=== PATIENT | female | born 1935 | race Caucasian/White ===

== ENCOUNTER 2021-03-19 14:10 | Outpatient (CLI) | payer MEDICARE, SELFPAY ==
--- NOTE | ~2021-03-19 | XR_ITS ---
EXAMINATION: XR clavicle RT DATE: 03/19/2021 14:43 INDICATION: Pain and swelling at the right sternoclavicular joint. TECHNIQUE: AP and 10 degree cephalad angled AP views of the right clavicle were obtained. COMPARISON: none FINDINGS: Normal alignment. No fracture. 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 Right glenohumeral and left sternoclavicular joints are unremarkable. Calcified nodule at the left upper lung zone consistent with old granulomatous disease.. IMPRESSION: 1. 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 Reviewed, dictated and finalized at location A.
== END 2021-03-19 14:11 | disposition home or self-care (01) ==
PROVIDERS: PCP Family Medicine; Visit Provider Plastic Surgery
DX: M19.011 Primary osteoarthritis, right shoulder (principal)
CPT/HCPCS: 73000

== ENCOUNTER 2021-06-05 14:00 | Emergency (ER) | payer MEDICARE, SELFPAY ==
--- NOTE | 2021-06-05 14:01 | ED.BACK ---
HPI - Back Pain/Injury General Chief Complaint: Back Pain/Injury Stated Complaint: Back Pain Time Seen by Provider: 06/05/21 14:01 Source: patient, family and RN notes reviewed History of Present Illness HPI Narrative: Patient is an 85-year-old female who presents to the urgent care with complaints of left-sided sciatica. Patient states that it radiates all the way down to the left foot. Patient states that she had this years ago and did keep muscle relaxers on hand to take as needed. However patient states she does not have any left. Patient states it started acting up last night after she had her legs out crossed for several hours. Patient states that she is used support hose which has helped slightly and taken Tylenol. Patient denies of any loss of bowel or bladder. Denies of any recent fall or trauma. No other acute complaints. No acute distress noted. Patient and spouse aware of the plan of care. Some parts of this dictation were generated by voice recognition software and may contain typographical and/or grammatical inaccuracies. Related Data Home Medications Medication Instructions Recorded Confirmed amlodipine 10 mg PO DAILY 06/05/21 06/05/21 fluticasone furoate-vilanterol 1 inh INHALATION DAILY 06/05/21 06/05/21 [Breo Ellipta] levothyroxine 75 mcg PO DAILY 06/05/21 06/05/21 Allergies Allergy/AdvReac Type Severity Reaction Status Date / Time codeine Allergy Unknown HIVES Verified 06/05/21 14:17 tetracycline Allergy Unknown HIVES Verified 06/05/21 14:17 Review of Systems Review of Systems: CONSTITUTIONAL: Denies fever, chills, or sweats. EYES: Denies visual changes, redness, or discharge. ENT: Denies rhinorrhea, congestion, sore throat, or otalgia. CARDIOVASCULAR: Denies chest pain, palpitations, or edema. RESPIRATORY: Denies cough or dyspnea. GASTROINTESTINAL: Denies abdominal pain, nausea, vomiting, or diarrhea. GENITOURINARY: Denies dysuria or hematuria. SKIN: Denies rash or itching. MUSCULOSKELETAL: Reports of left-sided low back pain radiating to the left buttock/left upper leg NEUROLOGIC: Denies headache, numbness, or weakness. All other systems reviewed are negative, except as documented in HPI. PMFSH Comments At the time of my signature, I reviewed and agree with the nursing past medical, surgical, social, and family history. There is no relevant family history pertinent to the patient complaint. Exam Narrative: GENERAL: This is a well-nourished, well-developed patient, in no apparent distress. HEAD: normocephalic, atraumatic. EYES: PERRL. Sclera clear/white. Vision is grossly intact. EARS: External ears normal NOSE: External nose normal with no obvious nasal discharge, nares without redness, no rhinorrhea. THROAT: Mucous membranes moist NECK: Neck supple CARDIOVASCULAR: Regular rate and rhythm RESPIRATORY: Clear to auscultation. Breath sounds equal bilaterally. No wheezes, rales, or rhonchi. SKIN: warm, intact with no suspicious lesions or rash, good texture and turgor. NEURO: awake, alert, and oriented to person, place and time. There were no obvious focal neurologic abnormalities. EXTREMITIES: No clubbing, cyanosis, or edema. BACK: Mild piriformis tenderness on the left with positive left SLE Course Vital Signs Vital signs: Vital Signs Temperature 98.6 F 06/05/21 14:08 Pulse Rate 78 06/05/21 14:08 Respiratory Rate 16 06/05/21 14:08 Blood Pressure 153/84 H 06/05/21 14:08 Pulse Oximetry 97 06/05/21 14:08 Temperature 98.6 F 06/05/21 14:08 Pulse Rate 78 06/05/21 14:08 Respiratory Rate 16 06/05/21 14:08 Blood Pressure 153/84 H 06/05/21 14:08 Pulse Oximetry 97 06/05/21 14:08 Reviewed-patient is informed that they may have pre-hypertension or hypertension based on a blood pressure reading in the department. I recommend the patient call the primary care provider listed on their discharge instructions or a physician of their choice this week to arrange follo
[2021-06-05 14:08] VITALS: BP 153/84; PULSE 78; RESP 16; TEMP 37; O2SAT 97
== END 2021-06-05 14:34 | disposition home or self-care (01) ==
PROVIDERS: Emergency Provider Nurse Practitioner Family
DX: M54.32 Sciatica, left side (principal)
CPT/HCPCS: 99213; G0463

== ENCOUNTER 2023-03-07 10:48 | Outpatient (CLI) | payer MEDICARE, SELFPAY ==
--- NOTE | ~2023-03-07 | XR_ITS ---
Left wrist Technique: PA, oblique, lateral, and ulnar deviation views were obtained. Clinical History: Osteoarthritis Findings: No acute fracture or dislocation is seen. There is mild to moderate degenerative change at the first CMC joint and STT articulations.. Soft tissues are unremarkable. Impression: Mild/moderate degenerative change at the first CMC joint and STT articulations. Reviewed, dictated and finalized at location . Impression: Mild/moderate degenerative change at the first CMC joint and STT articulations.
== END 2023-03-07 10:49 | disposition home or self-care (01) ==
PROVIDERS: Visit Provider Plastic Surgery
DX: M19.032 Primary osteoarthritis, left wrist (principal)
CPT/HCPCS: 73110

== ENCOUNTER 2023-06-18 01:36 | Day surgery (SDC) | payer MEDICARE, SELFPAY ==
--- NOTE | 2023-06-13 13:30 | PC.NURSE ---
Report to the Outpatient Waiting Room, entrance under the green pavilion located off [facility], at time _1100 on date ___06/18/23____. Planned Procedure Time: __1300 . Time changes happen often and if your time is changed the preop area will call you the afternoon before. - You and your visitor will be asked to self-screen and do not enter if you have any COVID symptoms. - A mask is optional within the hospital at this time. NOTHING TO EAT OR DRINK 8 HOURS PRIOR TO SURGERY PER DR BEE Take the following medications with a SIP of water the morning of surgery: ___AMLODIPINE,BREO INHALER_,LEVOTHYROXINE DO NOT STOP ANY OF YOUR OTHER PRESCRIPTION MEDICATIONS PRIOR TO SURGERY ?EXCEPT THE FOLLOWING Medications to discontinue per physician PLAVIX PER DR BEE __ALL VITAMINS AND SUPPLEMENTS 3 DAYS PRE OP.LAST DOSE 06/14/23 Please no make-up, nail jordanian, hairspray, perfume, deodorant, or body powder the day of surgery. No jewelry (including any body piercings) or valuables the day of surgery, leave them at home. Please take a shower or bath the night before, or the morning of, surgery with an antibacterial soap. Wear comfortable, loose fitting clothing. Children are encouraged to wear pajamas. - Jewelry must be removed prior to entering the operating room. Rings and piercings that are not removed may be cut off. - The hospital will not accept responsibility for valuables. - Please leave all valuables, including medications, at home the day of surgery. If you are going home after surgery, a licensed driver license reviewing officer must drive you home. - NO public transportation without another adult if you receive anesthesia. - We recommend that an adult stay with you for 24 hours following discharge. - We also recommend that you do not drive, make important decision, drink alcoholic beverages, or take any drugs that were not prescribed by your health care provider for at least 24 hours after your discharge time. For Pediatric surgeries, we recommend two adults accompany the child home. Follow any additional instructions given to you from your surgeon. If you or anyone in your household have experienced Covid symptoms in the past week, please notify your surgeon or the nurse liaison at the phone number below for possible testing. Telephone instructions given to __PATIENT and asked if any additional questions and then verbalized understanding. Patient advised to call surgeon office or pre surgery nurse liaison [phone] if any additional questions.
--- NOTE | 2023-06-18 07:56 | PM.HPGS ---
History of Present Illness History of Present Illness Chief complaint: ganglion cyst left dorsal wrist Narrative: Patient seen and examined in pre-operative holding area. No interval change in medical history or symptoms other than patient also notes persistent bothersome painful lesion on left volar forearm and asks about excision. Patient recalls previous discussion of benefits and alternatives to procedure. Continues to desire to proceed with left wrist ganglion cyst excision and ecu tenosynovectomy . Reviewed procedure, post-op expectations and risks including but not limited to bleeding, infection, injury to tendon/nerve/vessel, decreased hand function, stiffness, RSD, no change or worsening of symptoms, recurrence. I discussed the possible use of assistants and their participation in the case. Patient stated understanding and signed the consent form wishing to proceed. discussed excision of lesion at same time as other surgery, post-op expectations and risks including but not limited to recurrence. pt signed consent wishing to proceed Review of Systems Review of Systems: All systems reviewed & are unremarkable except as noted in HPI and below PMFSH Social History Social History Smoking status: Never smoker Lack of Transportation: No Lack of Food: Never True Current Housing: I Have Housing Concerned About Future Housing: No Difficulty Paying Gas/Electric Bills: No Difficulty Paying for Meds: No Currently Unemployed: No Education: High School Diploma/GED Difficulty w/ Childcare or Family Care: No Living arrangements: with family Spiritual care concerns: No Meds Home Medications and Allergies Home Medications Medication Instructions Recorded Confirmed Type amlodipine 10 mg tablet 10 mg PO DAILY 06/05/21 06/18/23 History fluticasone furoate 100 1 inh inhalation DAILY 06/05/21 06/13/23 History mcg-vilanterol 25 mcg/dose inhalation powder (Breo Ellipta) levothyroxine 75 mcg capsule 75 mcg PO DAILY 06/05/21 06/18/23 History clopidogrel 75 mg tablet 75 mg PO DAILY 06/13/23 06/18/23 History cyanocobalamin (vitamin B-12) 1,000 mcg PO DAILY 06/13/23 06/13/23 History 1,000 mcg tablet lactobacillus combination no.8 3 3 cell PO DAILY 06/13/23 06/13/23 History billion cell capsule potassium 99 mg tablet 99 mg PO DAILY 06/13/23 06/13/23 History vitamin A 2,400 mcg capsule 2,400 mcg PO DAILY 06/13/23 06/13/23 History tramadol 50 mg tablet 50 mg PO Q6H PRN pain #8 tabs 06/18/23 Rx Allergies Allergy/AdvReac Type Severity Reaction Status Date / Time codeine Allergy Unknown HIVES Verified 06/18/23 12:26 tetracycline Allergy Unknown HIVES Verified 06/18/23 12:26 Exam Narrative: unchanged Assessment and Plan Assessment and plan (1) Ganglion cyst: Code(s): M67.40 - Ganglion, unspecified site Status: Acute Assessment and Plan: see above
--- NOTE | 2023-06-18 07:57 | P.OP_ITS ---
Procedure Note - Detailed Date of Procedure 06/18/23 Pre-op Diagnosis ganglion cyst left dorsal wrist and left forearm skin lesion Post-op Diagnosis Same Procedure Performed excision left dorsal wrist ganglion cyst and excision left forearm skin lesion Surgeon Estee Mcdermott MD Anesthesia MAC Description of Procedure INFORMED CONSENT: The patient was seen and examined and marked in the pre-op area.? The patient signed the consent form. PROCEDURE IN DETAIL:The patient taken back to OR on the stretcher in supine position. Time out performed with anesthesia, surgeon and staff agreeing on patient's name site and surgery to be performed SCDs were placed on the lower extremities and inflated. A tourniquet was placed on {left} upper extremity and antibiotics given IV After anesthesia administered sedation I injected {15}cc 1%lido with epi and 0.5% marcaine plain at the operative sites The?{left upper extremity}?was prepped and draped in sterile fashion the??{left upper extremity} was? exsanguinated with Esmarch bandage and tourniquet inflated to 250mmHg I proceeded with making a longitudinal incisoin over left ecu and ganglion cyst through skin and dermis with a 15 blade. Littler scissors were used to spread down to ecu sheath and identified ganglion cyst distally around ulnar styloid. I proceeded with circumferential dissection around the ganglion cyst to joint capsule and then cauterized with bipolar and excised sharply. I irrigated with normal saline and repaired the capsular defect with 4-0 vicryl. The ECU was examined after releasing the ecu sheath and noting some fraying of the ecu as pt was also demonstrating pain along ecu pre-operatively. After releasing ecu sheath I irrigated with normal saline and closure with 3-0 viryl and 4-0 nylon. Next I took my attention to the left volar forearm lesion. I proceeded with making an elliptical incision around lesion with 3mm margins and excess skin on ends to remove dog ears wide undermine skin edges to minimize tension and allow skin edge advancement hemostasis irrigation closure with 4-0 vicryl dermis and 4-0 nylon skin length of closure was 1.7cm A dressing ofxeroform, 4x4, vernon, and a volar splint was applied for patient safety, security, and comfort and secured with an stepan bandage after the tourniquet was let down noting the hand was warm and well perfused. The patient was then awaken from anesthesia and transferred to the recovery room in stable condition.? Complications - none EBL- 0cc Disposition - home in stable conditions [facility] [place] Billing Surgery - Charge Forward: Surgery Billing ([id number], [id number], [id number] and [id number])
--- NOTE | 2023-06-18 12:17 | WPDANESEPPF ---
Anes - Initial Pre Proc Eval Procedure: Operation Date: 06/18/23 13:00 Proposed Procedures p Excision Ganglion Cyst Left Dorsal Wrist, Extensor Carpi Ulnaris Synovectomy - Estee Mcdermott MD Date/Time: 06/18/23 12:17 Surgeon: Estee Mcdermott MD Pre Op Diagnosis: ganglion cyst left dorsal wrist Patient Data Age: 87 Gender: F Height: Weight: Allergies Allergy/AdvReac Type Severity Reaction Status Date / Time codeine Allergy Unknown HIVES Verified 06/13/23 13:15 tetracycline Allergy Unknown HIVES Verified 06/13/23 13:15 Home Medications Medication Instructions Recorded Confirmed Type amlodipine 10 mg tablet 10 mg PO DAILY 06/05/21 06/13/23 History fluticasone furoate 100 1 inh inhalation DAILY 06/05/21 06/13/23 History mcg-vilanterol 25 mcg/dose inhalation powder (Breo Ellipta) levothyroxine 75 mcg capsule 75 mcg PO DAILY 06/05/21 06/13/23 History clopidogrel 75 mg tablet 75 mg PO DAILY 06/13/23 06/13/23 History cyanocobalamin (vitamin B-12) 1,000 mcg PO DAILY 06/13/23 06/13/23 History 1,000 mcg tablet lactobacillus combination no.8 3 3 cell PO DAILY 06/13/23 06/13/23 History billion cell capsule potassium 99 mg tablet 99 mg PO DAILY 06/13/23 06/13/23 History vitamin A 2,400 mcg capsule 2,400 mcg PO DAILY 06/13/23 06/13/23 History Patient hx anesthesia problems: other (diff breathing) Family hx anesthesia problems: none Results Review: All pre-operative results and documents have been reviewed as part of the pre-operative evaluation. [facility] Social History Social History Smoking status: Never smoker Lack of Transportation: No Lack of Food: Never True Current Housing: I Have Housing Concerned About Future Housing: No Difficulty Paying Gas/Electric Bills: No Difficulty Paying for Meds: No Currently Unemployed: No Education: High School Diploma/GED Difficulty w/ Childcare or Family Care: No Living arrangements: with family Spiritual care concerns: No Anes - Eval Final PreProcedure Day of Procedure 06/18/23 12:17 Patient weight: overweight Heart: regular rate and rhythm Lungs: decreased breath sounds Airway: Mallampati scale class II Neurological: alert and oriented Last oral intake: >/= 8 hours ASA classification: III Emergent: no Anesthetic plan: proceed Anesthesia type and monitoring: general GIVS and standard monitoring Results Review: All pre-operative results and documents have been reviewed as part of the pre-operative evaluation. Informed Consent: The patient's anesthetic plan and its attendant risks and benefits were discussed with the patient/family/POA. Questions were solicited and answers provided to the satisfaction of the patient/family/POA.
[2023-06-18 12:22] VITALS: BP 161/88; PULSE 71; RESP 14; TEMP 36.4; O2SAT 99
[2023-06-18] MEDS: ceFAZolin 2 GM/D5W 50 ML 2 GM/50 ML BAG IVPB (12:58)
[2023-06-18] MEDS: LIDO 1%/EPINEPHRINE 1:100,000 20 ML VIAL 10 ML INFILTRATE (13:25)
[2023-06-18] MEDS: BUPivacaine HCL 0.5% PF 30 ML VIAL INFILTRATE (13:26)
[2023-06-18 13:33] VITALS: BP 162/77; PULSE 72; RESP 14; O2SAT 99
[2023-06-18 14:00] VITALS: BP 143/58; PULSE 65; RESP 16
[2023-06-18 14:30] VITALS: BP 166/81; PULSE 70; RESP 16
== END 2023-06-18 15:00 | disposition home or self-care (01) ==
PROVIDERS: Visit Provider Plastic Surgery
PROC: (CPT 25111; principal; 2023-06-18 13:00)
DX: M67.432 Ganglion, left wrist (principal); L82.1 Other seborrheic keratosis; L57.8 Other skin changes due to chronic exposure to nonionizing radiation; Z79.02 Long term (current) use of antithrombotics/antiplatelets; Z79.51 Long term (current) use of inhaled steroids
CPT/HCPCS: 25111; 11402; 12031; 88305; A9270; J0690; J2704; J3010

== ENCOUNTER 2024-06-01 12:14 | Outpatient (CLI) | payer MEDICARE, SELFPAY ==
--- NOTE | ~2024-06-01 | MR_ITS ---
EXAMINATION: MR wrist LT wo/w con DATE: 06/01/2024 13:38 INDICATION: Left wrist pain and swelling and ganglion. TECHNIQUE: Magnetic resonance imaging (MRI) of the wrist was performed without and with 13 mL MultiHa nce intravenous contrast. COMPARISON: Left wrist radiographs 03/07/2023 FINDINGS: Intrinsic ligaments: There is a partial tear of the proximal (membranous) component of scapholunate ligament. There is a f ull-thickness tear of the proximal (membranous) component of lunotriquetral ligament. Triangular fibrocartilage complex (TFCC): There is a full-thickness tear of triangular fibrocartilage. Extensor wrist: There is multiloculated tenosynovitis involving extensor carpi ulnaris. There is an intraosseous gang lion in the adjacent ulnar styloid. Flexor wrist: The flexor tendons are normal. Median nerve is normal. Guyon's canal: The ulnar nerve is normal. Bones/other: There is full-thickness cartilage loss of proximal lunate at its ulnar aspect with subchondral cysts, consistent with ulnolunate impaction syndrome. There is full-thickness cartilage loss of radial styl oid at radioscaphoid joint. There is severe osteoarthritis of triscaphe joint and first carpometacarp al joint. There is mild osteoarthritis of scapholunate joint. IMPRESSION: 1. Multiloculated tenosynovitis involving extensor carpi ulnaris with an intraosseous ganglion in the adjacent ulnar styloid. 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 Reviewed, dictated and finalized at location A. L EXPEDITER IMPRESSION: 1. Multiloculated tenosynovitis involving extensor carpi ulnaris with an intrao sseous ganglion in the adjacent ulnar styloid. 2. 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
== END 2024-06-01 12:15 | disposition home or self-care (01) ==
PROVIDERS: Visit Provider Plastic Surgery
DX: S63.512A Sprain of carpal joint of left wrist, initial encounter (principal); X58.XXXA Exposure to other specified factors, initial encounter; M19.032 Primary osteoarthritis, left wrist
CPT/HCPCS: 73223; A9577

== ENCOUNTER 2024-09-01 00:57 | Day surgery (SDC) | payer MEDICARE, SELFPAY ==
[2024-08-24 13:02] VITALS: BMI 22.7
--- NOTE | 2024-08-24 13:52 | PC.NURSE ---
Report to the Outpatient Waiting Room, entrance under the green pavilion located off [facility], at time ___10:45AM____ on date ___09/01/24____. Planned Procedure Time: __12:45PM .? Time changes happen often and if your time is changed the preop area will call you the afternoon before. - You and your visitor will be asked to self-screen and do not enter if you have any COVID symptoms. Please call surgeon if you need to reschedule. - A mask is optional within the hospital at this time. Nothing to eat or drink 8 hours pre-op per Dr Luke/ may have clear liquids (water, carbonated beverages, clear teas, apple juice) until 2:45am prior to surgery (with a maximum of 20 ounces. - No food from midnight until time of surgery and no smoking, or chewing tobacco (or any form of nicotine). No chewing gum, candy or mints. Take only the following medications with a SIP of water on the morning of surgery: ____AMLODIPINE, LEVOTHYROXINE & WIXELA INHALER DO NOT STOP ANY OF YOUR OTHER PRESCRIPTION MEDICATIONS PRIOR TO SURGERY EXCEPT THE FOLLOWING Hold all vitamins and supplements for 3 days per anesthesiologist.-LAST DOSE 08/28/24 Medications to discontinue per physician __HOLD PLAVIX PER DR BEE- LEFT MESSAGE AT OFFICE TO FOLLOW UP WITH PATIENT ABOUT PLAVIX HOLD(08/24/24)__ Please no make-up, nail yi, hairspray, perfume, deodorant, or body powder the day of surgery.? No jewelry (including any body piercings) or valuables the day of surgery, leave them at home.? Please take a shower or bath the night before, or the morning of, surgery with an antibacterial soap.? Wear comfortable, loose fitting clothing.? - Jewelry must be removed prior to entering the operating room.? Rings and piercings that are not removed may be cut off. - The hospital will not accept responsibility for valuables.? - Please leave all valuables, including medications, at home the day of surgery. If you are going home after surgery, a licensed driver's license examiner must drive you home.? - NO public transportation without another adult if you receive anesthesia. - We recommend that an adult stay with you for 24 hours following discharge. - We also recommend that you do not drive, make important decision, drink alcoholic beverages, or take any drugs that were not prescribed by your health care provider for at least 24 hours after your discharge time. Follow any additional instructions given to you from your surgeon. Telephone instructions given to ____PATIENT and asked if any additional questions and then verbalized understanding. Patient advised to call surgeon office or pre surgery nurse liaison [phone] if any additional questions.
[2024-09-01] VITALS (8 sets, daily range): BP systolic 145–176; BP diastolic 54–85; PULSE 64–78; RESP 12–20; TEMP 36.6; O2SAT 93–98; BMI 23.6
--- NOTE | ~2024-09-01 | XR_ITS ---
EXAMINATION: XR surgery orthopedic DATE: 09/01/2024 13:50 INDICATION: Left wrist arthroscopy TECHNIQUE: 4 fluoroscopic images of the left wrist were obtained during procedure performed by Dr. Ab marrufo. Radiologist was not present for the imaging or procedure. The amount of fluoroscopy time us ed during this procedure was 0.2 minutes. COMPARISON: Radiographs dated 03/07/23 and MRI dated 06/01/2024 FINDINGS: Images demonstrate soft tissue retractors project over the ulnar side of the wrist. The tip of a meta llic surgical instrument likely for curettage projects over the lytic lesion at the ulnar styloid pro cess. No fractures identified. 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 IMPRESSION: 1. Fluoroscopy utilized during orthopedic procedure at dressing and lytic lesion at the ulnar styloid process. See procedure note for further detail. Reviewed, dictated and finalized at location B. ER PRESS OPERATOR IMPRESSION: 1. Fluoroscopy utilized during orthopedic procedure at dressing and lytic lesio n at the ulnar styloid process. See procedure note for further detail.
--- OUTSIDE RECORDS SUMMARY | 2024-09-01 01:00 | XMS_ITS | Encounter Summary ---
Author Organization [facility] Address [address] [place] [address] Phone Care Team Providers Care Medical Unit Secretary Name Role Phone Diamond Langley MD Primary Care Provider + [phone] Felisha Gresham MD Primary Care Provider + [phone] Prasanna Chowdary MD Unavailable Wilson Teague Primary Care Provider + [phone] Davey Peralta APRN, SWATHI Unavailable + [phone] Reason for Visit * Reason Comments Medication Refill Encounter Details Date Type Department Care Team (Late st Contact Info) Description [facility] [address] [place] [address] Diamond Langley MD [address] [place] [address] Medication Refill Social History Tobacco Use Types Packs/Day Years Used Date Smoking Tobacco: Never Smokeless Tobacco: Never Alcohol Use Standard Drinks/Week Comments No 0 (1 standard drink = 0.6 oz pur e alcohol) PHQ-2 Answer Date Recorded PHQ-2 Score 0 03/20/2019 Sexually Active Control Partners Comments Yes Male Comments No Sex and Gender Information Value Date Recorded Sex Assigned at Not on file Legal Sex Female 10:22 AM CDT Gender Identity Not on file Sexual Orientation Not on file documented as of this encounter Miscellaneous Notes * Telephone Encounter - Gricel Diaz RN - 02/20/2021 10:37 AM CDT Medication failed the protocol, provider to review and approve the medication order if appropriate. Requested Prescriptions Pending Prescriptions Disp Refills levothyroxine (SYNTHROID) 75 MCG Tablet [Pharmacy Med Name: LEVOTHYROXINE 75 MCG TABLET] 90 Tablet 1 Sig: TAKE 1 TABLET BY MOUTH EVERY DAY Thyroid Hormones Protocol Failed - 02/20/2021 10:37 AM Failed - Normal TSH in past 12 months No results found for: TSH Passed - Visit with relevant provider in past 12 months or upcoming 90 days Recent Visits Date Type Provider Dept 01/09/21 Office Visit Diamond Langley MD [facility] 07/14/20 Telemedicine Diamond Langley MD [facility] 07/10/20 Office Visit Diamond Langley MD [facility] Showing recent visits within past 365 days and meeting all other requirements Future Appointments No visits were found meeting these conditions. Showing future appointments within next 90 days and meeting all other requirements documented in this encounter Plan of Treatment Upcoming Encounters Date Type Department Care Team (Late st Contact Info) Description 12/28/2024 1:00 PM CDT Office Visit [facility] [address] [place] [address] Davey Peralta, MANAGEMENT TECHNICIAN, VISUAL MANAGER [address] [place] [address] 02/01/2025 8:10 AM CDT Lab [facility] [address] [place] [address] [facility] 02/07/2025 8:30 AM CDT Office Visit [facility] [place] [address] [place] [address] Wilson Teague, PAC [address] [place] [address] documented as of this encounter Visit Diagnoses Diagnosis Hypothyroidism (acquired) Unspecified hypothyroidism documented in this encounter Additional Health Concerns Infection Onset Date Last Indicated Resolved Time COVID - 19 05/24/2024 05/24/2024 05/24/2024 9:51 AM TRACK REPAIR SUPERVISOR Respiratory Rule-Out 05/24/2024 05/24/2024 024 10:01 AM TRACK REPAIR SUPERVISOR COVID - 19 Confirmed 05/24/2024 05/24/2024 024 12:16 AM TRACK REPAIR SUPERVISOR Assessment Noted Time PHQ-9 Depression Total Score: 0 12/16/19 19 8:00 AM CDT documented as of this encounter Care Teams Medical Unit Secretary Relationship Specialty Start Date End Date Diamond Langley MD PCP - General Family Medicine 04/09/15 11/24/22 Felisha Gresham MD [address], [place] [id number] PCP - General Family Medicine 01/08/23 07/31/23 Wlison Teague, PAC [address] [place] [address] PCP - General Physician Digital Asset Manager 08/01/23 Prasanna Chowdary MD [address] [address] Consulting Physician Urology 01/25/22 Davey Peralta APRN, VISUAL MANAGER [address] [place] [address] Nurse Practitioner Advanced Practice Nurse 12/29/23 documented as of this encounter
--- OUTSIDE RECORDS SUMMARY | 2024-09-01 01:00 | XMS_ITS | Patient Health Summary ---
Author Organization [facility] Address [address] [place] [address] Care Team Providers Care Geographic Information Systems Manager Name Role Phone Unavailable Primary Care Provider Unavailabl e Note from [facility],non-owned Affiliates and Associated Physician Practices is amultiple site organization consisting of ambulatory clinics and hospital sitesin [place], [place] and [place]. This disclosure is being madepursuant to the Care Everywhere program and may not contain all information available regarding this patient. Last updated 18.[facility] Social History Tobacco Use Types Packs/Day Years Used Date Smoking Tobacco: Never Assessed Sex and Gender Information Value Date Recorded Sex Assigned at Not on file Gender Identity Not on file Sexual Orientation Not on file Procedures * HYPERCOAG PROFILE(Performed 08/20/2012) * LUPUS ANTICOAGULANT CLIENT RESULT ONLY(Performed 08/20/2012) * PT-INR [facility](Performed 08/20/2012) * D-DIMER(Performed 08/20/2012) * PTT [facility](Performed 08/20/2012) * COMPREHENSIVE METABOLIC PANEL(Performed 08/20/2012) * CBC W AUTO DIFFERENTIAL(Performed 08/20/2012) * HOMOCYSTEINE BLOOD QUANTITATIVE(Performed 08/20/2012) Results * PTT [facility] (08/20/2012 11:07 AM DETACHER) APTT 31.8 23.0 - 38.4 SECONDS [facility] Comment: SUGGESTED THERAPEUTIC RANGE FOR FULL DOSE I.V. HEPARIN THERAPY FOR VENOUS THROMBOEMBOLISM IS 66.0 - 91.0 SECONDS, WITH AN APTT RATIO OF 2.1 - 3.0. APTT Ratio 1.04 [facility] 08/20/2012 11:0 7 AM DETACHER 08/20/2012 11:54 AM DETACHER Porfirio Canela MD LAB - COAGULATION OR DERABLES Performing Organization Address [facility] Co de Phone Number [address] [phone] * PT-INR [facility] (08/20/2012 11:07 AM DETACHER) Pathologist [facility] PT 13.8 12.1 - 14.8 SECONDS [facility] INR 1.0 [facility] Comment: SUGGESTED THERAPEUTIC RANGE FOR LOW-INTENSITY COUMADIN THERAPY FOR VENOUS THROMBOEMBOLISM IS INR 2.0-3.0. FOR HIGH RISK PATIENTS (MITRAL VALVE PROSTHESIS, ATRIAL FIBRILLATION, HISTORY OF TIA/STROKE), SUGGESTED THERAPEUTIC RANGE IS INR 2.5-3.5. 08/20/2012 11:0 7 AM DETACHER 08/20/2012 11:54 AM DETACHER Porfirio Canela MD LAB - COAGULATION OR DERABLES Performing Organization Address [facility] Co de Phone Number [address] [phone] * HYPERCOAG PROFILE (08/20/2012 11:07 AM DETACHER) Pathologist [facility] Antithrombin Activity 107 85 - 130 U/DL [facility] Protein C Activity 155 75 - 165 U/DL [facility] Protein S Activity 102 70 - 130 U/DL [facility] APC Resistance CaCl2 Sec 39.7 SEC [facility] APC Resistance APC/CaCl2 Sec 86.8 SEC [facility] APC Resistance Ratio 2.2 >2.0 [facility] Comment: * PLEASE NOTE NEW REFERENCE RANGE * Factor V Mutation Leiden () [facility] Comment: Specimen: 9 ml Peripheral Blood Reference: [id number] Test: Factor V Leiden Mutation (B0743F) RESULT Factor V Genotype (Q8400D) Wild-Type Allele: Detected Mutant Allele: Not Detected Patient Genotype: -/- (Normal) Reference Range: -/- INTERPRETATION From this analysis, the patient has only wild-type ( - ) alleles of Factor V at S7206E. This patient lacks the T0463Q mutation of Factor V; and is, therefore homozygous wild-type (negative). COMMENT DNA was isolated from the specimen and analyzed by PCR in an allele specific amplification protocol to detect the thrombophilia associated V5331F mutation of Factor V (Factor V Leiden) that confers resistance to proteolytic cleavage by Activated Protein C (Tino Gonzalez et al (1994) Nature 369, 644-647; Elizabeth Morin, et al (1997) Hemostasis Thrombosis 78, 960-961; Alfonso Nolasco et al, (2001) Clin Chem 47:333-335). Only wild-type (normal) sequences were detected. This test was developed and its performance characteristics determined by the [facility] at [facility]. It has not been cleared or approved by the U.S. Food and Drug Administration. The FDA has determined that such clearance or approval is not necessary. This test is used for clinical purposes. It should not be regarded as investigational or for research. This laboratory is certified under the Clinical Laboratory Improvement Amendments of 1988 (CLIA-88) as qualified to perform high complexity clinical laboratory testing. Test performed at [facility], [address] [place] [address] This case has been personally reviewed and interpreted by the attending (teaching) pathologist. Final Diagnosis performed by Ricky Levi MD, PhD. Electronically signed 08/25/2012 Prothrombin Gene Mutation () [facility] Comment: Specimen: 9 ml Peripheral Blood Reference: [id number] Test: Prothrombin Mutation (G94630S) RESULT Prothrombin Genotype (N23053I) Wild-Type Allele: Detected Mutant Allele: Not Detected Patient Genotype: -/- (Normal) Reference Range: -/- INTERPRETATION From this analysis, the patient has only wild-type (-) alleles of the prothrombin gene at the F23644C position. This patient lacks the M20023A mutation of prothrombin and is, therefore, homozygous wild-type (normal). COMMENT DNA isolated from the specimen was analyzed by PCR in an allele specific amplification protocol to detect the mutation of the prothrombin gene (M92239N) associated with elevated prothrombin levels and increased risk of venous thrombosis (Dominik Lehman., et al (1996), Blood 88, 1013-0449; Elizabeth Arteaga et al (1997) Hemostasis Thrombosis 78, 960-961; Ivon Nolasco (2001) Clin Chem 47:333-335). Only wild-type (normal) sequences were detected. This test was developed and its performance characteristics determined by the [facility] at [facility]. It has not been cleared or approved by the U.S. Food and Drug Administration. The FDA has determined that such clearance or approval is not necessary. This test is used for clinical purposes. It should not be regarded as investigational or for research. This laboratory is certified under the Clinical Laboratory Improvement Amendments of 1988 (CLIA-88) as qualified to perform high complexity clinical laboratory testing. Test performed at [facility], [address] [place] [address] This case has been personally reviewed and interpreted by the attending (teaching) pathologist. Final Diagnosis performed by Ricky Levi MD, PhD. Electronically signed 08/25/2012 MTHFR PCR () [facility] Comment: Specimen: 9 ml Peripheral Blood Reference: [id number] Test: Methylenetetrahydrofolate Reductase (MTHFR) Mutation C677T RESULT MTHFR Genotype (C677T) Wild-Type Allele: Detected Mutant Allele: Not Detected Patient Genotype: -/- (Normal) Reference Range: -/- INTERPRETATION From this analysis, the patient lacks the C677T mutation of the methylenetetrahydrofolate reductase gene associated with a thermolabile phenotype; this patient is, therefore, homozygous wild-type (normal). COMMENT DNA was isolated from the specimen and analyzed by PCR in an allele specific amplification protocol to detect the C677T mutation of methylenetetrahydrofolate reductase associated with a thermolabile phenotype (Alfonso Nolasco et al, (2001) Clin Chem 47:333-335). Only wild-type sequences were detected. This test was developed and its performance characteristics determined by the [facility] at [facility]. It has not been cleared or approved by the U.S. Food and Drug Administration. The FDA has determined that such clearance or approval is not necessary. This test is used for clinical purposes. It should not be regarded as investigational or for research. This laboratory is certified under the Clinical Laboratory Improvement Amendments of 1988 (CLIA-88) as qualified to perform high complexity clinical laboratory testing. Test performed at [facility], [address] [place] [id number] This case has been personally reviewed and interpreted by the attending (teaching) pathologist. Final Diagnosis performed by Ricky Levi MD, PhD. Electronically signed 08/26/2012 08/20/2012 11:0 7 AM DETACHER 08/20/2012 11:54 AM DETACHER Porfirio Canela MD LAB - COAGULATION OR DERABLES Performing Organization Address City/State/[facility] Co de Phone Number [facility] [address] [place] [address] * LUPUS ANTICOAGULANT CLIENT RESULT ONLY (08/20/2012 11:07 AM DETACHER) APTT NOT DONE 24.0 - 38.0 SECONDS [facility] PT NOT DONE 12.1 - 14.8 SECONDS [facility] INR NOT DONE [facility] Thrombin Time 16.9 16.2 - 21.9 SECONDS [facility] Dilute Prothrombin Time Index 0.85 <1.31 [facility] Interpretation dPT NEGATIVE NEGATIVE S [facility] [place] Buffer 45.3 SECONDS [facility] Phospholipid 42.7 SECONDS [facility] [place] Delta Seconds 2.6 <9.0 SECONDS [facility] Interpretation [facility] NEGATIVE NEGATIVE [facility] Comment: Up to 15-20% of patients with lupus anticoagulant associated with antiphospholipid antibody syndrome (APAS) will have negative [facility] results. For these patients we recommend additional testing to include the Dilute Romain Viper Venom Time (DRVVT) and dilute prothrombin time (Dilute PT) tests. Immunoassay measurements of anti-cardiolipin and anti-beta-2 glycoprotein 1 are recommended if the DRVVT, DIL-PT and [place]-LA tests are negative and there is clinical suspicion of APAS. LA-DRVVT Screen 0.8 <1.2 [facility] Interpretation Dilute RVV NEGATIVE NEGATIVE [facility] Anticardiolipin Antibody IgG <15.0 <15.0 GPL [facility] Anticardiolipin Antibody IgM <15.0 <15.0 MPL [facility] Anticardiolipin Antibody IgA <15.0 <15.0 APL [facility] Beta-2 Glycoprotein I Antibody IgG <20.0 <20.0 [facility] Beta-2 Glycoprotein I Antibody IgM <20.0 <20.0 [facility] Beta-2 Glycoprotein I Antibody IgA <20.0 <20.0 [facility] 08/20/2012 11:0 7 AM DETACHER 08/20/2012 11:54 AM DETACHER Porfirio Canela MD LAB - CHEMISTRY ORDE NICK Performing Organization Address [facility]/ZIP Co de Phone Number [address] [phone] * D-DIMER (08/20/2012 11:07 AM DETACHER) D-Dimer Quantitative 0.27 0.0 - 0.50 mcg/mL [facility] Comment: In the absence of clinical symptoms, a value less than or equal to 0.5 reliably excludes the diagnosis of acute PE/DVT 08/20/2012 11:0 7 AM DETACHER 08/20/2012 11:54 AM DETACHER Porfirio Canela MD LAB - COAGULATION OR DERABLES Performing Organization Address [facility]/ZIP Co de Phone Number [address] [phone] * (ABNORMAL) CBC W AUTO DIFFERENTIAL (08/20/2012 11:06 AM DETACHER) WBC 6.4 3.5 - 10.5 10^3/uL [facility] RBC 4.28 3.90 - 5.00 10^6/uL [facility] Hemoglobin 14.4 12.0 - 15.5 g/dL [facility] Hematocrit 41.8 35.0 - 45.0 % [facility] MCV 97.7(H) 81.0 - 97.0 FL [facility] MCH 33.6 28.0 - 34.0 PG [facility] MCHC 34.4 32.0 - 36.0 G/DL [facility] Platelet 269 150 - 400 10^3/uL [facility] RDW 13.0 11.2 - 14.8 % [facility] RDW-SD 46.5 36 - 50 FL [facility] MPV 9.3 9.3 - 12.8 FL [facility] Neutrophils % 62.8 35.0 - 70.0 % [facility] Lymphocytes % 25.6 19.7 - 55.1 % [facility] Monocytes % 10.2 3 - 15 % [facility] Eosinophils % 1.1 0.0 - 6.0 % [facility] Basophils % 0.3 0.0 - 1.5 % [facility] Neutrophils Absolute 4.0 1.7 - 7.0 10^3/uL [facility] Lymphocyte Absolute 1.6 0.8 - 2.9 10^3/uL [facility] Monocytes Absolute 0.7(H) 0.14 - 0.66 10^3/uL [facility] Eosinophils Absolute 0.07 0.00 - 0.22 10^3/uL [facility] Basophils Absolute 0.02 0.02 - 0.06 10^3/uL [facility] Differential Type AUTO DIFFERENTIAL [facility] 08/20/2012 11:0 6 AM DETACHER 08/20/2012 11:18 AM DETACHER Porfirio Canela MD LAB - HEMATOLOGY ORD ERABLES Performing Organization Address City/State/[facility] Co de Phone Number [address] [phone] * COMPREHENSIVE METABOLIC PANEL (08/20/2012 11:06 AM DETACHER) BUN 11 7 - 26 mg/dL [facility] Creatinine 0.8 0.6 - 1.2 mg/dL [facility] eGFR by MDRD > 60 ML/MIN [facility] Comment: Chronic kidney disease: <60 ml/min Kidney failure: <15 ml/min Based on BSA of 1.73m2. Sodium 139 136 - 145 mmol/L [facility] Potassium 4.1 3.5 - 4.5 mmol/L [facility] Chloride 105 98 - 107 mmol/L [facility] CO2 22 22 - 29 mmol/L [facility] Glucose 89 70 - 115 mg/dL [facility] Calcium 8.9 8.4 - 10.2 mg/dL [facility] Protein Total 7.4 6.0 - 8.3 g/dL [facility] Albumin 4.1 3.4 - 5.0 g/dL [facility] Bilirubin Total 0.5 0.2 - 1.2 mg/dL [facility] Alkaline Phosphatase 61 40 - 150 Units/L [facility] ALT 18 0 - 55 Units/L [facility] AST 27 5 - 34 Units/L [facility] Anion Gap 16 8 - 18 [facility] BUN/Creatinine Ratio 13 7 - 23 [facility] Osmolality Calculation 271 270 - 300 mOsm/kg [facility] Albumin/Globulin Ratio 1.2 1.1 - 2.3 [facility] 08/20/2012 11:0 6 AM DETACHER 08/20/2012 11:54 AM DETACHER Porfirio Canela MD LAB - CHEMISTRY ARELY ROMERO [address] [phone] * HOMOCYSTEINE BLOOD QUANTITATIVE (08/20/2012 11:05 AM DETACHER) Homocysteine 8.6 4.4 - 16.2 umol/L [facility] 08/20/2012 11:0 5 AM DETACHER 08/20/2012 11:59 AM DETACHER Porfirio Canela MD LAB - CHEMISTRY ARELY ROMERO [address] [phone]
--- OUTSIDE RECORDS SUMMARY | 2024-09-01 01:00 | XMS_ITS | Encounter Summary ---
Author Organization [facility] Address [address] [place] [address] Phone Care Team Providers Care Cloth Tearer Name Role Phone Diamond Langley MD Primary Care Provider + [phone] Felisha Gresham MD Primary Care Provider + [phone] Prasanna Chowdary MD Unavailable Wilson Teague Primary Care Provider + [phone] Davey Peralta APRN, SWATHI Unavailable + [phone] Reason for Visit * Reason Comments Medication Refill Encounter Details Date Type Department Care Team (Late st Contact Info) Description 02/[facility] [address] [place] [address] Diamond Langley MD [address] [place] [address] Medication Refill Social History Tobacco [...] encounter Miscellaneous Notes * Telephone Encounter - Estefany Goyal - 02/27/2020 2:27 PM CDT Upcoming lab in 4 months and ov with pcp Unable to sign per policy Routing for provider review and approval Thanks! documented in this encounter Plan of Treatment Upcoming Encounters Date Type Department Care Team (Late st Contact Info) Description 12/28/2024 1:00 PM CDT Office [facility] [address] [place] [address] Davey Peralta, LICENSED ARCHITECT, CASING PULLER [address] [place] [address] 02/01/2025 8:10 AM CDT Lab [facility] [address] [place] [address] [facility] 02/07/2025 8:30 AM CDT Office Visit [facility] [address] [place] [address] Wilson Teague PAC [address] [place] [address] documented as of this encounter Visit Diagnoses Diagnosis Hypothyroidism (acquired) Unspecified hypothyroidism documented in this encounter Additional Health Concerns Infection Onset Date Last Indicated Resolved Time COVID - 19 05/24/2024 05/24/2024 05/24/2024 9:51 AM PRODUCT DEVELOPMENT DIRECTOR Respiratory Rule-Out 05/24/2024 05/24/2024 024 10:01 AM PRODUCT DEVELOPMENT DIRECTOR COVID - 19 Confirmed 05/24/2024 05/24/2024 024 12:16 AM PRODUCT DEVELOPMENT DIRECTOR Assessment Noted Time PHQ-9 Depression Total Score: 0 12/16/19 8:00 AM CDT documented as of this encounter Care Teams Cloth Tearer Relationship Specialty Start Date End Date Diamond Langley MD PCP - General Family Medicine 04/09/15 11/24/22 Felisha Gresham MD [address] [place] [address] PCP - General Family Medicine 01/08/23 07/31/23 Wilson Teague, [facility] [address] [place] [phone] PCP - General Physician Churn Drill Operator 08/01/23 Prasanna Chowdary MD [address] [address] Consulting Physician Urology 01/25/22 Davey Peralta, LICENSED ARCHITECT, CASING PULLER [address] [place] [address] Nurse Practitioner Advanced Practice Nurse 12/29/23 documented as of this encounter
--- OUTSIDE RECORDS SUMMARY | 2024-09-01 01:00 | XMS_ITS | Encounter Summary ---
Author Organization [facility] Address [address] [place] [address] Phone Care Team Providers Care Crimper Operator Name Role Phone Diamond Langley MD Primary Care Provider + [phone] Felisha Gresham MD Primary Care Provider + [phone] Prasanna Chowdary MD Unavailable Wilson Teague Primary Care Provider + [phone] Davey Peralta APRN, SWATHI Unavailable + [phone] Reason for Visit * Reason Comments Medication Refill Encounter Details Date Type Department Care Team (Late st Contact Info) Description 08/07/2021 Refill [facility] - Primary Care - [place] [address] [place] [address] Diamond Langley MD [address] [place] [address] Medication Refill Social History Tobacco [...] on file Sexual Orientation Not on file COVID-19 Exposure Response Date Recorded In the last month, have you been in contact with someone who was confirmed or suspected to have Coronavirus / COVID-19? No / Unsure 07/17/2021 1:23 PM TRANSCRIPTION MANAGER documented as of this encounter Miscellaneous Notes * Telephone Encounter - Tram Winters RN - 08/08/2021 7:56 AM TRANSCRIPTION MANAGER Medication failed the protocol, provider to review and approve the medication order if appropriate. Requested Prescriptions Pending Prescriptions Disp Refills gabapentin (NEURONTIN) 100 MG Capsule [Pharmacy Med Name: GABAPENTIN 100 MG CAPSULE] 90 Capsule 0 Sig: TAKE 1 CAPSULE BY MOUTH EVERY DAY IN THE EVENING Not Delegated - Anticonvulsants Excluding Benzodiazepines Protocol Failed - 08/07/2021 5:56 PM Failed - This refill cannot be delegated Passed - Visit with relevant provider in past 12 months or upcoming 90 days Recent Visits Date Type Provider Dept 06/18/21 Office Visit Diamond Langley MD [facility] 06/12/21 Office Visit Joaquina Reyes APRN, OUTDOOR ADVERTISING LEASING AGENT [facility] 01/09/21 Office Visit Diamond Langley MD [facility] Showing recent visits within past 365 days and meeting all other requirements Future Appointments No visits were found meeting these conditions. Showing future appointments within next 90 days and meeting all other requirements SCRIPTION MANAGER documented in this encounter Plan of Treatment Upcoming Encounters Date Type Department Care Team (Late st Contact Info) Description 12/28/2024 1:00 PM CDT Office Visit [facility] UROLOGY [address] [place] [address] Davey Peralta APRN, OUTDOOR ADVERTISING LEASING AGENT [address] [place] [address] 02/01/2025 8:10 AM CDT Lab [facility] - Primary Care - [place] [address] [place] [address] [facility] 02/07/2025 8:30 AM CDT Office Visit [facility] - Primary Care - [place] [address] [place] [address] Wilson Teague PAC [address] [facility] [place] [address] documented as of this encounter Visit Diagnoses Diagnosis Left leg pain Pain in limb documented in this encounter Additional Health Concerns Infection Onset Date Last Indicated Resolved Time COVID - 19 05/24/2024 05/24/2024 05/24/2024 9:51 AM TRANSCRIPTION MANAGER Respiratory Rule-Out 05/24/2024 05/24/2024 024 10:01 AM TRANSCRIPTION MANAGER COVID - 19 Confirmed 05/24/2024 05/24/2024 024 12:16 AM TRANSCRIPTION MANAGER Assessment Noted Time PHQ-9 Depression Total Score: 0 12/16/19 8:00 AM CDT documented as of this encounter Care Teams Crimper Operator Relationship Specialty Start Date End Date Diamond Langley MD PCP - General Family Medicine 04/09/15 11/24/22 Felisha Gresham MD [address] [place], [place] [id number] PCP - General Family Medicine 01/08/23 07/31/23 Wilson Teague, PAC [address] [place] [address] PCP - General Physician Reference Librarian 08/01/23 Prasanna Chowdary MD [address]2 [facility], [address] [address] Consulting Physician Urology 01/25/22 Davey Peralta, DIVYA, OUTDOOR ADVERTISING LEASING AGENT [address] [place] [address] Nurse Practitioner Advanced Practice Nurse 12/29/23 documented as of this encounter
--- OUTSIDE RECORDS SUMMARY | 2024-09-01 01:00 | XMS_ITS | Referral Summary ---
Author Organization [facility] Address [address] [place] [address] Care Team Providers Care Training Lead Name Role Phone Felisha Gresham MD Primary Care Provider [phone] Allergies Active Allergy Reactions Criticality Noted Date Comments Codeine Tetracycline Medications amLODIPine (NORVASC) 10 mg tablet Take 1 tablet (10 mg total) by mouth daily 9 Active levothyroxine (SYNTHROID) 50 mcg tablet Take 1 tablet (50 mcg total) by mouth daily 9 Active nitrofurantoin monohydrate (MACROBID) 100 mg capsule Take 100 mg by mouth as needed 9 Active fluticasone furoate-vilante rol (BREO ELLIPTA) 100-25 mcg/dose diskus inhaler Inhale 1 puff daily Active ascorbic acid (VITAMIN C) 1,000 mg tablet Take 1,000 mg by mouth daily Active cyanocobalamin (Vitamin B-12) 100 mcg tablet Take 1 tablet (100 mcg total) by mouth daily Active lactobacillus combination no.4 (Probiotic) 3 billion cell capsule Take by mouth Active denosumab (PROLIA) 60 mg/mL syringe Inject 1 mL (60 mg total) under the skin once Every 6 months 4 Active clopidogreL (PLAVIX) 75 mg tablet TAKE 1 TABLET BY MOUTH EVERY DAY 90 tablet 3 5 Active clopidogreL (PLAVIX) 75 mg tablet TAKE 1 TABLET BY MOUTH EVERY DAY 90 tablet 3 4 08/17/19 25 Discontinued Active Problems No known active problems Immunizations Immunization Administration Dates Next Due Influenza, Trivalent, IM (JARAD) 04/10/2016 Social History Tobacco Use Types Packs/Day Years Used Date Smoking Tobacco: Never Tobacco Cessation:Counseling Given: Not Answered Comments Unknown Sex and Gender Information Value Date Recorded Sex Assigned at Not on file Legal Sex Female 2:31 PM ADJUNCT INSTRUCTOR Gender Identity Not on file Sexual Orientation Not on file Last Filed Vital Signs Vital Sign Reading Time Taken Comments Blood Pressure 167/72 01/15/2024 10:37 AM CDT Pulse 65 01/15/2024 10:37 AM CDT Temperature 36.3 C (97.3 F) 11/08/2021 2:17 PM CDT Respiratory Rate 18 01/02/2023 1:44 PM CDT Oxygen Saturation 96% 07/22/2019 1:34 PM ADJUNCT INSTRUCTOR Inhaled Oxygen Concentration - - Weight 68 kg (150 lb) 01/15/2024 10:37 AM CDT Height 167.6 cm (5' 6 ) 01/15/2024 10:37 AM CDT Body Mass Index 24.21 01/15/2024 10:37 AM CDT Plan of Treatment Not on file Insurance [employer] [facility] [employer] Care Teams Training Lead Relationship Specialty Start Date End Date Felisha Gresham MD PCP - General Family Medicine 05/19/23
--- OUTSIDE RECORDS SUMMARY | 2024-09-01 01:00 | XMS_ITS | Encounter Summary ---
Author Organization [facility] Address [address] [place] [address] Phone Care Team Providers Care Aerologist Name Role Phone Diamond Langley MD Primary Care Provider + [phone] Felisha Gresham MD Primary Care Provider + [phone] Prasanna Chowdary MD Unavailable Wilson Teague Primary Care Provider + [phone] Davey Peralta APRN, CNP Unavailable + [phone] Reason for Visit * Reason Comments Medication Refill Encounter Details Date Type Department Care Team (Late st Contact Info) Description 08/15/2020 Refill [facility] UROLOGY [address] [facility] [place] [place] [address] Brendan Anne MD [address] [address] [place] [address] Medication Refill Social History Tobacco Use Types [...] encounter Miscellaneous Notes * Telephone Encounter - Brendan Anne MD - 08/16/2020 1:19 PM PROFESSOR OF BIOLOGY Schedule follow up appointment ESSOR OF BIOLOGY documented in this encounter Plan of Treatment Upcoming Encounters Date Type Department Care Team (Late st Contact Info) Description 12/28/2024 1:00 PM CDT Office Visit [facility] UROLOGY [address] [place] [address] Davey Peralta, SUPERVISOR BEET END, OWNER/PHOTOGRAPHER [address] [place] [address] 02/01/2025 8:10 AM CDT Lab [facility] [address] [place] [address] [facility] 02/07/2025 8:30 AM CDT Office Visit [facility] [address] [place] [address] Wilson Teague PAC [address] [place] [address] documented as of this encounter Visit Diagnoses Diagnosis Recurrent UTI Urinary tract infection, site not specified documented in this encounter Additional Health Concerns Infection Onset Date Last Indicated Resolved Time COVID - 19 05/24/2024 05/24/2024 05/24/2024 9:51 AM PROFESSOR OF BIOLOGY Respiratory Rule-Out 05/24/2024 05/24/2024 024 10:01 AM PROFESSOR OF BIOLOGY COVID - 19 Confirmed 05/24/2024 05/24/2024 024 12:16 AM PROFESSOR OF BIOLOGY Assessment Noted Time PHQ-9 Depression Total Score: 0 12/16/19 8:00 AM CDT documented as of this encounter Care Teams Aerologist Relationship Specialty Start Date End Date Diamond Langley MD PCP - General Family Medicine 04/09/15 11/24/22 Felisha Gresham MD [address] [place], [place] [id number] PCP - General Family Medicine 01/08/23 07/31/23 Wilson Teague, [facility] [address] [place] [address] PCP - General Physician Manager Intern 08/01/23 Prasanna Chowdary MD [address] [address] Consulting Physician Urology 01/25/22 Davey Peralta, SUPERVISOR BEET END, OWNER/PHOTOGRAPHER [address] [facility] [place] [place] [address] Nurse Practitioner Advanced Practice Nurse 12/29/23 documented as of this encounter
--- OUTSIDE RECORDS SUMMARY | 2024-09-01 01:00 | XMS_ITS | Encounter Summary ---
Author Organization [facility] Address [address] [place] [address] Phone Care Team Providers Care Banking Services Advisor Name Role Phone Diamond Langley MD Primary Care Provider + [phone] Felisha Gresham MD Primary Care Provider + [phone] Prasanna Chowdary MD Unavailable Wilson Teague Primary Care Provider + [phone] Davey Peralta APRN, SWATHI Unavailable + [phone] Reason for Visit * Reason Comments Medication Refill Encounter Details Date Type Department Care Team (Late st Contact Info) Description 09/12/2020 [facility] [address] [place] [address] Diamond Langley MD [address] [place] [address] Medication Refill Social History Tobacco [...] encounter Miscellaneous Notes * Telephone Encounter - Nakia Lala RN - 09/13/2020 9:43 AM SALES FLOOR TEAM LEADER Medication failed the protocol, provider to review and approve the medication order if appropriate. Requested Prescriptions Pending Prescriptions Disp Refills levothyroxine (SYNTHROID) 75 MCG Tablet [Pharmacy Med Name: LEVOTHYROXINE 75 MCG TABLET] 90 Tablet 1 Sig: TAKE 1 TABLET BY MOUTH EVERY DAY Endocrinology: Hypothyroid Agents Failed - 09/12/2020 5:10 PM Failed - TSH in normal range and within 360 days No results found for: TSH Passed - Valid encounter within last 12 months Past Office Visits Recent Outpatient Visits 2 months ago Osteoporosis, unspecified osteoporosis type, unspecified pathological fracture presence [facility] Diamond Langley MD 2 months ago Physical exam, annual (Adult) [facility] Diamond Langley MD 1 year ago Essential hypertension with goal blood pressure less than 140/[address] [facility] Diamond Langley MD 1 year ago Essential hypertension with goal blood pressure less than 140/[address] [facility] Diamond Langley MD 2 years ago Essential hypertension with goal blood pressure less than 140/[address] [facility] Diamond Langley MD Upcoming Appointments Future Appointments In 3 months [facility] In 3 months [facility] COMMUNITY SERVICE ORGANIZATION DIRECTOR - Recent and Past Visits Recent Visits Date Type Provider Dept 07/14/20 Telemedicine Diamond Langley MD [facility] 07/10/20 Office Visit Diamond Langley MD [facility] 06/18/19 Office Visit Diamond Langley MD [facility] Showing recent visits within past 460 days with a meds authorizing provider and meeting all other requirements Future Appointments No visits were found meeting these conditions. Showing future appointments within next 90 days with a meds authorizing provider and meeting all other requirements S FLOOR TEAM LEADER documented in this encounter Plan of Treatment Upcoming Encounters Date Type Department Care Team (Late st Contact Info) Description 12/28/2024 1:00 PM CDT Office Visit [facility] UROLOGY [address] [place] [address] Davey Peralta, SNAG GRINDER, RECORD KEEPER [address] [place] [address] 02/01/2025 8:10 AM CDT Lab [facility] [address] [place] [address] [facility] 02/07/2025 8:30 AM CDT Office Visit [facility] [address] [place] [address] Wilson Teague PAC [address] [place] [address] documented as of this encounter Visit Diagnoses Diagnosis Hypothyroidism (acquired) Unspecified hypothyroidism documented in this encounter Additional Health Concerns Infection Onset Date Last Indicated Resolved Time COVID - 19 05/24/2024 05/24/2024 05/24/2024 9:51 AM SALES FLOOR TEAM LEADER Respiratory Rule-Out 05/24/2024 05/24/2024 024 10:01 AM SALES FLOOR TEAM LEADER COVID - 19 Confirmed 05/24/2024 05/24/2024 024 12:16 AM SALES FLOOR TEAM LEADER Assessment Noted Time PHQ-9 Depression Total Score: 0 12/16/19 19 8:00 AM CDT documented as of this encounter Care Teams Banking Services Advisor Relationship Specialty Start Date End Date Diamond Langley MD PCP - General Family Medicine 04/09/15 11/24/22 Felisha Gresham MD [address] [place] [address] PCP - General Family Medicine 01/08/23 07/31/23 Wilson Teague, PAC [address] [place] [address] PCP - General Physician Birth Attendant 08/01/23 Prasanna Chowdary MD [address] [address] Consulting Physician Urology 01/25/22 Davey Peralta APRN, RECORD KEEPER [address] [address] Nurse Practitioner Advanced Practice Nurse 12/29/23 documented as of this encounter
--- OUTSIDE RECORDS SUMMARY | 2024-09-01 01:00 | XMS_ITS | Encounter Summary ---
Author Organization [facility] Address [address] [place] [address] Phone Care Team Providers Care Patient Consumer Marketer Name Role Phone Diamond Langley MD Primary Care Provider + [phone] Felisha Gresham MD Primary Care Provider + [phone] Prasanna Chowdary MD Unavailable Wilson Teague Primary Care Provider + [phone] Davey Peralta APRN, SWATHI Unavailable + [phone] Reason for Visit * Reason Comments Medication Refill Encounter Details Date Type Department Care Team (Late st Contact Info) Description [facility] [address] [place] [address] Diamond Langley MD [address] [place] [address] Medication Refill Social History Tobacco [...] COVID-19? No / Unsure 07/17/2021 1:23 PM CORPORATE ASSOCIATE ATTORNEY documented as of this encounter Miscellaneous Notes * Telephone Encounter - Karis Billy RN - 08/06/2021 11:50 AM CST Medication failed the protocol, provider to review and approve the medication order if appropriate. Requested Prescriptions Pending Prescriptions Disp Refills levothyroxine (SYNTHROID) 75 MCG Tablet [Pharmacy Med Name: LEVOTHYROXINE 75 MCG TABLET] 90 Tablet 1 Sig: TAKE 1 TABLET BY MOUTH EVERY DAY Thyroid Hormones Protocol Failed - 08/05/2021 10:01 AM Failed - Normal TSH in past 12 months No results found for: TSH Passed - Visit with relevant provider in past 12 months or upcoming 90 days Recent Visits Date Type Provider Dept 06/18/21 Office Visit Diamond Langley MD [facility] [address] 06/12/21 Office Visit Joaquina Reyes APRN, COST MANAGER [facility] [address] 01/09/21 Office Visit Diamond Langley MD [facility] Showing recent visits within past 365 days and meeting all other requirements Future Appointments No visits were found meeting these conditions. Showing future appointments within next 90 days and meeting all other requirements Signed Prescriptions Disp Refills amLODIPine (NORVASC) 10 MG Tablet 90 Tablet 1 Sig: TAKE 1 TABLET BY MOUTH EVERY DAY Calcium-Channel Blockers Protocol Passed - 08/05/2021 10:01 AM Passed - BP on record in the past year Clinician-entered: BP Readings from Last 3 Encounters: 07/17/21 155/68 06/18/21 138/66 06/12/21 150/64 Patient-entered: No data recorded Passed - Visit with relevant provider in past 12 months or upcoming 90 days Recent Visits Date Type Provider Dept 06/18/21 Office Visit Diamond Langley MD [facility] [address] 06/12/21 Office Visit Joaquina Reyes APRN, COST MANAGER [facility] [address] 01/09/21 Office Visit [facility] Showing recent visits within past 365 days and meeting all other requirements Future Appointments No visits were found meeting these conditions. Showing future appointments within next 90 days and meeting all other requirements ORATE ASSOCIATE ATTORNEY documented in this encounter Plan of Treatment Upcoming Encounters Date Type Department Care Team (Late st Contact Info) Description 12/28/2024 1:00 PM CDT Office Visit [facility] UROLOGY [address] [place] [address] Davey Peralta, BLENDER LABORER, COST MANAGER [address] [place] [address] 02/01/2025 8:10 AM CDT Lab [facility] [address] [place] [address] [facility] 02/07/2025 8:30 AM CDT Office Visit [facility] [address] [place] [address] Wilson Teague PAC [address] [place] [address] documented as of this encounter Visit Diagnoses Diagnosis Hypothyroidism (acquired) Unspecified hypothyroidism documented in this encounter Additional Health Concerns Infection Onset Date Last Indicated Resolved Time COVID - 19 05/24/2024 05/24/2024 05/24/2024 9:51 AM CORPORATE ASSOCIATE ATTORNEY Respiratory Rule-Out 05/24/2024 05/24/2024 024 10:01 AM CORPORATE ASSOCIATE ATTORNEY COVID - 19 Confirmed 05/24/2024 05/24/2024 024 12:16 AM CORPORATE ASSOCIATE ATTORNEY Assessment Noted Time PHQ-9 Depression Total Score: 0 12/16/19 8:00 AM CDT documented as of this encounter Care Teams Patient Consumer Marketer Relationship Specialty Start Date End Date Diamond Langley MD PCP - General Family Medicine 04/09/15 11/24/22 Felisha Gresham MD [address] [place] [address] PCP - General Family Medicine 01/08/23 07/31/23 Wilson Teague, PAC [address] [place] [address] PCP - General Physician Senior Windows Systems Administrator 08/01/23 Prasanna Chowdary MD [address] [address] Consulting Physician Urology 01/25/22 Davey Peralta, BLENDER LABORER, COST MANAGER [address] [place] [address] Nurse Practitioner Advanced Practice Nurse 12/29/23 documented as of this encounter
--- OUTSIDE RECORDS SUMMARY | 2024-09-01 01:00 | XMS_ITS | Encounter Summary ---
Author Organization [facility] Address [address] [place] [address] Phone Care Team Providers Care Senior Network Security Engineer Name Role Phone Diamond Langley MD Primary Care Provider + [phone] Felisha Gresham MD Primary Care Provider + [phone] Prasanna Chowdary MD Unavailable Wilson Teague Primary Care Provider + [phone] Davey Peralta APRN, SWATHI Unavailable + [phone] Reason for Visit * Reason Comments Medication Refill Encounter Details Date Type Department Care Team ([facility] Contact Info) Description 02/22/2021 [facility] [address] [place] [address] Diamond Langley MD [address] [place] [address] Medication Refill Social History Tobacco [...] on file documented as of this encounter Plan of Treatment Upcoming Encounters Date Type Department Care Team ([facility] Contact Info) Description 12/28/2024 1:00 PM CDT Office Visit [facility] UROLOGY [address] [place] [address] Davey Peralta APRN, QUALITY CONTROL MICROBIOLOGY SUPERVISOR [address] [place] [address] 02/01/2025 8:10 AM CDT Lab [facility] [address] [place] [address] [facility] 02/07/2025 8:30 AM CDT Office Visit [facility] [address] [place] [address] Wilson Teague [facility] [address] [place] [address] documented as of this encounter Visit Diagnoses Not on filedocumented in this encounter Additional Health Concerns Infection Onset Date Last Indicated Resolved Time COVID - 19 05/24/2024 05/24/2024 05/24/2024 9:51 AM HEALTH RESEARCHER Respiratory Rule-Out 05/24/2024 05/24/2024 024 10:01 AM HEALTH RESEARCHER COVID - 19 Confirmed 05/24/2024 05/24/2024 024 12:16 AM HEALTH RESEARCHER Assessment Noted Time PHQ-9 Depression Total Score: 0 12/16/19 19 8:00 AM CDT documented as of this encounter Care Teams Senior Network Security Engineer Relationship Specialty Start Date End Date Diamond Langley MD PCP - General Family Medicine 04/09/15 11/24/22 Felisha Gresham MD [address] [place] [address] PCP - General Family Medicine 01/08/23 07/31/23 Wilson Teague, PAC [address] [place] [address] PCP - General Physician Engineering Test Specialist 08/01/23 Prasanna Chowdary MD [address] [address] Consulting Physician Urology 01/25/22 Davey Peralta, RAW FINISH MILL OPERATOR, QUALITY CONTROL MICROBIOLOGY SUPERVISOR [address] [place] [address] Nurse Practitioner Advanced Practice Nurse 12/29/23 documented as of this encounter
--- OUTSIDE RECORDS SUMMARY | 2024-09-01 01:00 | XMS_ITS | Encounter Summary ---
Author Organization [facility] Address [address] [place] [address] Phone Care Team Providers Care Career And Technology Education Teacher Name Role Phone Diamond Langley MD Primary Care Provider + [phone] Felisha Gresham MD Primary Care Provider + [phone] Prasanna Chowdary MD Unavailable Wilson Teague Primary Care Provider + [phone] Davey Peralta APRN, SWATHI Unavailable + [phone] Reason for Visit * Reason Comments Medication Refill Encounter Details Date Type Department Care Team (Late st Contact Info) Description 06/13/2021 Refill [facility] [address] [place] [address] Diamond Langley MD [address] [place] [address] Medication Refill Social History Tobacco [...] have Coronavirus / COVID-19? No / Unsure 06/11/2021 9:20 AM MANUFACTURING PLANNER documented as of this encounter Miscellaneous Notes * Telephone Encounter - Gricel Diaz RN - 06/13/2021 12:07 PM CST amLODIPine (NORVASC) 10 MG Tablet 90 Tablet 0 06/04/2021 FACTURING PLANNER documented in this encounter Plan of Treatment Upcoming Encounters Date Type Department Care Team (Late st Contact Info) Description 12/28/2024 1:00 PM CDT Office Visit [facility] [address] [place] [address] Davey Peralta, CUFF PRESSER, SOCIAL PSYCHOLOGIST [address] [place] [address] 02/01/2025 8:10 AM CDT Lab [facility] [address] [place] [phone] [facility] 02/07/2025 8:30 AM CDT Office Visit [facility] [address] [place] [id number] Wilson Teague PAC [address] [place] [address] documented as of this encounter Visit Diagnoses Not on filedocumented in this encounter Additional Health Concerns Infection Onset Date Last Indicated Resolved Time COVID - 19 05/24/2024 05/24/2024 05/24/2024 9:51 AM MANUFACTURING PLANNER Respiratory Rule-Out 05/24/2024 05/24/2024 10:01 AM MANUFACTURING PLANNER COVID - 19 Confirmed 05/24/2024 05/24/2024 12/08/2 024 12:16 AM MANUFACTURING PLANNER Assessment Noted Time PHQ-9 Depression Total Score: 0 12/16/19 19 8:00 AM CDT documented as of this encounter Care Teams Career And Technology Education Teacher Relationship Specialty Start Date End Date Diamond Langley MD PCP - General Family Medicine 04/09/15 11/24/22 Felisha Gresham MD [address] [place] [address] PCP - General Family Medicine 01/08/23 07/31/23 Wilson Teague PAC [address] [place] [address] PCP - General Physician Logistics Center Manager 08/01/23 Prasanna Chowdary MD [address] [address] Consulting Physician Urology 01/25/22 Davey Peralta APRN, SOCIAL PSYCHOLOGIST [address] [place] [address] Nurse Practitioner Advanced Practice Nurse 12/29/23 documented as of this encounter
--- OUTSIDE RECORDS SUMMARY | 2024-09-01 01:00 | XMS_ITS | Referral Summary ---
Author Organization [facility] Address [address] [place] [place] [address] Care Team Providers Care Furniture Finisher Apprentice Name Role Phone Unavailable Primary Care Provider Unavailabl e Source Comments [facility],non-owned Affiliates and Associated Physician Practices is amultiple site organization consisting of ambulatory clinics and hospital sitesin [place], [place], [place] and [place]. This disclosure is being madepursuant to the Care Everywhere program and may not contain all information available regarding this patient. Last updated 18.[employer] Social History Tobacco Use Types Packs/Day Years Used Date Smoking Tobacco: Never Assessed Sex and Gender Information Value Date Recorded Sex Assigned at Not on file Gender Identity Not on file Sexual Orientation Not on file Plan of Treatment Not on file
--- OUTSIDE RECORDS SUMMARY | 2024-09-01 01:00 | XMS_ITS | Encounter Summary ---
Author Organization [facility] Address [address] [place] [address] Phone Care Team Providers Care Water Pumping Station Engineer Name Role Phone Prasanna Chowdary MD Unavailable Wilson Teague Primary Care Provider + [phone] Davey Peralta APRN, CNP Unavailable + [phone] Encounter Details Date Type Department Care Team (Late st Contact Info) Description 08/01/2024 Results Follow-Up [facility] - Primary Care - [address] [place] [address] Wilson Teague PAC [address] [place] [address] Social History Tobacco Use Types Packs/Day Years Used Date Smoking Tobacco: Never Smokeless Tobacco: Never Alcohol Use Standard Drinks/Week Comments No 0 (1 standard drink = 0.6 oz pur e alcohol) PHQ-2 Answer Date Recorded Total Score - Questions 1-9 0 07/08 Sexually Active Control Partners Comments Yes Male Comments No Sex and Gender Information Value Date Recorded Sex Assigned at Not on file Legal Sex Female 10:22 AM CDT Gender Identity Not on file Sexual Orientation Not on file documented as of this encounter Plan of Treatment Upcoming Encounters Date Type Department Care Team (Late Contact Info) Description 12/28/2024 1:00 PM CDT Office Visit [facility] [address] [place] [address] Davey Peralta APRN, COOK HELPER JUICE [address] [place] [address] 02/01/2025 8:10 AM CDT Lab [facility] [address] [facility] [address] [facility] 02/07/2025 8:30 AM CDT Office Visit [facility] [place] [address] [place] [address] Wilson Teague PAC [address] [place] [address] documented as of this encounter Visit Diagnoses Not on filedocumented in this encounter Additional Health Concerns Assessment Noted Time PHQ-9 Depression Total Score: 0 08/01/19 8:04 AM COBOL DEVELOPER documented as of this encounter Care Teams Water Pumping Station Engineer Relationship Specialty Start Date End Date Wilson Teague PAC [address] [address] PCP - General Physician Revenue Cycle Consultant 08/01/23 Prasanna Chowdary MD [address] [address] Consulting Physician Urology 01/25/22 Davey Peralta APRN, COOK HELPER JUICE [address] [place] [address] Nurse Practitioner Advanced Practice Nurse 12/29/23 documented as of this encounter
--- OUTSIDE RECORDS SUMMARY | 2024-09-01 01:00 | XMS_ITS | Encounter Summary ---
Author Organization [facility] Address [address] [place] [address] Phone Care Team Providers Care Education Courses Sales Representative Name Role Phone Diamond Langley MD Primary Care Provider + [phone] Felisha Gresham MD Primary Care Provider + [phone] Prasanna Chowdary MD Unavailable Wilson Teague Primary Care Provider + [phone] Davey Peralta APRN, SWATHI Unavailable + [phone] Reason for Visit * Reason Comments Medication Refill Encounter Details Date Type Department Care Team (Late st Contact Info) Description 04/09/2022 Refill [facility] - Primary Care - Self [address] [place] [address] Diamond Langley MD [address] [place] [address] Medication Refill Social History Tobacco [...] Telephone Encounter - Nakia Lala RN - 04/09/2022 9:09 AM CDT Refill request too soon. documented in this encounter Plan of Treatment Upcoming Encounters Date Type Department Care Team (Late st Contact Info) Description 12/28/2024 1:00 PM CDT Office Visit [facility] [address] [place] [address] Davey Peralta APRN, BATH MIX OPERATOR [address] [place] [address] 02/01/2025 8:10 AM CDT Lab [facility] [place] [address] [place] [address] [facility] 02/07/2025 8:30 AM CDT Office Visit [facility] [address] [place] [address] Wilson Teague PAC [address] [place] [address] documented as of this encounter Visit Diagnoses Not on filedocumented in this encounter Additional Health Concerns Infection Onset Date Last Indicated Resolved Time COVID - 19 05/24/2024 05/24/2024 05/24/2024 9:51 AM SHELLFISH CHECKER Respiratory Rule-Out 05/24/2024 05/24/2024 024 10:01 AM SHELLFISH CHECKER COVID - 19 Confirmed 05/24/2024 05/24/2024 024 12:16 AM SHELLFISH CHECKER Assessment Noted Time PHQ-9 Depression Total Score: 0 12/16/19 8:00 AM CDT documented as of this encounter Care Teams Education Courses Sales Representative Relationship Specialty Start Date End Date Diamond Langley MD PCP - General Family Medicine 04/09/15 11/24/22 Felisha Gresham MD [address] [place], [place] [phone] PCP - General Family Medicine 01/08/23 07/31/23 Wilson Teague, [facility] [address] [place] [phone] PCP - General Physician Aircraft Electrical Systems Specialist 08/01/23 Prasanna Chowdary MD [address] [address] Consulting Physician Urology 01/25/22 Davey Peralta, RACK LOADER, BATH MIX OPERATOR [address] [facility] [place] [address] Nurse Practitioner Advanced Practice Nurse 12/29/23 documented as of this encounter
--- OUTSIDE RECORDS SUMMARY | 2024-09-01 01:00 | XMS_ITS | Clinical Summary ---
Author Organization [facility] Address [address] [place] [address] Care Team Providers Care Manufacturing Engineering Director Name Role Phone Felisha Gresham MD Primary Care Provider [phone] Allergies Active Allergy Reactions Criticality Noted Date [...] Next Due Influenza, Trivalent, IM (JARAD) 04/10/2016 Surgical History Surgery Date Site/Laterality Comments IR FINE NEEDLE ASPIRATION W IMAGE GUIDANCE 01/11/2016 N/A Social History Tobacco Use Types Packs/Day Years Used Date Smoking Tobacco: Never Tobacco Cessation:Counseling Given: Not Answered Comments Unknown Sex and Gender Information Value Date Recorded Sex Assigned at Not on file Legal Sex Female 2:31 PM CHECK WEIGHER Gender Identity Not on file Sexual Orientation Not on file Obstetrics History Last Filed Vital Signs Vital Sign Reading Time Taken Comments Blood Pressure 167/72 01/15/2024 10:37 AM CDT Pulse 65 01/15/2024 10:37 AM CDT Temperature 36.3 C (97.3 F) 11/08/2021 2:17 PM CDT Respiratory Rate 18 01/02/2023 1:44 PM CDT Oxygen Saturation 96% 07/22/2019 1:34 PM CHECK WEIGHER Inhaled Oxygen Concentration - - Weight 68 kg (150 lb) 01/15/2024 10:37 AM CDT Height 167.6 cm (5' 6 ) 01/15/2024 10:37 AM CDT Body Mass Index 24.21 01/15/2024 10:37 AM CDT Plan of Treatment Health Maintenance Due Date Last Done Comments Depression Screening 1935 Fall Risk Assessment 1935 Hepatitis B Screening 1953 Well Visit 65+ 2000 DTaP/Tdap/Td Vaccine (1 - Tdap) 07/08/2009 0 Covid-19 Vaccine (3 - 2023-2 5 season) 2024 09/26/2020, 08/29/2020 Influenza Vaccine (#1) 2024 3, 04/14/2020, 05/04/2019, Additional history exists Pneumococcal vaccine 65+ Completed 018, 06/06/2015, 07/07/2006, Additional history exists Zoster Vaccine Completed 12/10/2018, 12/2018, 07/07/2007 Insurance [employer] [facility] Care Teams Manufacturing Engineering Director Relationship Specialty Start Date End Date Felisha Gresham MD PCP - General Family Medicine 05/19/23
--- OUTSIDE RECORDS SUMMARY | 2024-09-01 01:00 | XMS_ITS | Clinical Summary ---
Author Organization [facility] Address [address] [facility] [place] [address] Care Team Providers Care High Risk Ob Name Role Phone Unavailable Primary Care Provider Unavailabl e Source Comments [facility],non-owned Affiliates and Associated Physician Practices is amultiple site organization consisting of ambulatory clinics and hospital sitesin [place], [place], [place] and [place]. This disclosure is being madepursuant to the Care Everywhere program and may not contain all information available regarding this patient. Last updated 18.[facility] Social History Tobacco Use Types Packs/Day Years Used Date Smoking Tobacco: Never Assessed Sex and Gender Information Value Date Recorded Sex Assigned at Not on file Gender Identity Not on file Sexual Orientation Not on file Plan of Treatment Health Maintenance Due Date Last Done Comments BONE DENSITY TESTING 1935 DTAP/TDAP/TD VACCINES (1 - Tdap) 1954 PNEUMOCOCCAL VACCINE 50+ (1 of 1 - PCV) 1985 ZOSTER VACCINE (1 of 2) 1985 Respiratory Syncytial Virus (RSV) Vaccine Pt: or over 60 yrs (1 - 1-dose 75+ series) 2010 COVID-19 VACCINE ( - 2023-2 5 season) 2024 INFLUENZA VACCINE (#1) 2024 DEPRESSION SCREENING 07/07/2024 MEDICARE AWV CALENDAR YEAR 2024 HEPATITIS B VACCINE Aged Out No longe r eligible based on patient's age to complete this topic HIB VACCINE Aged Out No longer eligi ble based on patient's age to complete this topic HPV VACCINE Aged Out No longer eligi ble based on patient's age to complete this topic MENINGOCOCCAL (Group B) VACCINE Aged Out No longer eligible based on patient's age to complete this topic MENINGOCOCCAL VACCINE Aged Out No carlie brianna eligible based on patient's age to complete this topic CAROLYN DUMAS Personal/Family Spouse [address] [place] [address]
--- OUTSIDE RECORDS SUMMARY | 2024-09-01 01:00 | XMS_ITS | Clinical Summary ---
Author Organization [facility] Care Team Providers Care Records Technician Name Role Phone Prasanna Chowdary MD Unavailable Wilson Teague Primary Care Provider + [phone] Davey Peralta APRN, CYLINDER INSPECTOR Unavailable + [phone] Allergies Active Allergy Reactions Criticality Noted Date Comments Codeine Hives,Rash Tetracyclines & Related Hives,Rash Medications clopidogrel (PLAVIX) 75 MG Tablet Take 75 mg by mouth daily. 017 Active Probiotic Product (PROBIOTIC DAILY PO) Take by mouth. Activ e Cyanocobalamin (VITAMIN B12 PO) Take by mouth daily. Active Wixela Inhub 250-50 MCG/ACT AEROSOL POWDER, BREATH ACTIVATED INHALE 1 PUFF BY MOUTH TWICE A DAY DIRECTED 024 Active levothyroxine (SYNTHROID) 75 MCG TabletIndicatio ns:Hypothyroidi sm (acquired) TAKE 1 TABLET BY MOUTH EVERY DAY 90 Tablet 1 024 Active losartan (COZAAR) 50 MG TabletIndicatio ns:Hypertension , unspecified type Take 1 Tablet by mouth daily. 90 Tablet 1 025 Active amLODIPine (NORVASC) 10 MG Tablet TAKE 1 TABLET BY MOUTH EVERY DAY 90 Tablet 025 Active Denosumab (PROLIA) 60 MG/ML Solution Prefilled SyringeIndicati ons:Age-related osteoporosis without current pathological fracture,Osteop orosis, unspecified osteoporosis type, unspecified pathological fracture presence 1 mL by Subcutaneous route See Admin Instructions. 1 mL 1 025 Active fluticasone-cele anterol (BREO ELLIPTA) 100-25 MCG/INH AEROSOL POWDER, BREATH ACTIVATED take 1 Puff by inhalation every morning. 2024 Discontinued(M ed List Clean Up) Denosumab (PROLIA) 60 MG/ML Solution Prefilled SyringeIndicati ons:Age-related osteoporosis without current pathological fracture,Osteop orosis, unspecified osteoporosis type, unspecified pathological fracture presence 1 mL by Subcutaneous route See Admin Instructions. 1 mL 1 024 2024 Discontinued(R eorder) losartan (COZAAR) 25 MG TabletIndicatio ns:Hypertension , unspecified type Take 1 Tablet by mouth daily. 90 Tablet 3 024 2024 Discontinued(R eorder) amLODIPine (NORVASC) 10 MG Tablet TAKE 1 TABLET BY MOUTH EVERY DAY 90 Tablet 024 2024 Discontinued Denosumab (PROLIA) 60 MG/ML Solution Prefilled SyringeIndicati ons:Osteoporosi s, unspecified osteoporosis type, unspecified pathological fracture presence 1 mL by Subcutaneous route See Admin Instructions. 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 12/05/2015 Hypothyroidism (acquired) 12/05/2015 Hypertension 12/05/2015 Pulmonary nodule 12/05/2015 Resolved Problems Problem Noted Date Diagnosed Date Resolved Date Platelet disorder 06/16/2017 12/15/2017 Shortness of breath 06/10/2016 07/10/19 21 Renal cyst 12/05/2015 06/10/2016 Encounters Date Type Department Care Team Description 08/26/2024 1:00 PM CLIENT ACCOUNT SPECIALIST Clinical Support [facility] [address] [place] [address] Wilson Teague, PAC Osteoporosis, unspecified osteoporosis type, unspecified pathological fracture presence Discharge Disposition: Discharged to home or Selfcare 08/26/2024 Travel 08/26/2024 Telephone [facility] [address] [place] [address] Wilson Teague, PAC Need Order (prolia) 08/[facility] [address] [place] [address] Wilson Teague, PAC Need Order 08/17/2024 Refill [facility] [address] [place] [phone] Wilson Teague, PAC Medication Refill 08/06/2024 8:00 AM CLIENT ACCOUNT SPECIALIST Office Visit [facility] [address] [place] [address] Wilson Teague, PAC Hypothyroidism (acquired) (Primary Dx); Hypertension, unspecified type; Dyslipidemia; Coronary artery disease involving otoe-missouria coronary artery of otoe-missouria heart with other form of angina pectoris (HCC); Persistent cough Discharge Disposition: Discharged to home or Selfcare 08/06/2024 Travel 08/01/2024 Results Follow-Up [facility] [address] [place] [address] Wilson Teague, PAC 07/30/2024 8:00 AM CLIENT ACCOUNT SPECIALIST Lab [place] [address] [place] [phone] Dyslipidemia; Hypertension, unspecified type; Coronary artery disease involving otoe-missouria coronary artery of otoe-missouria heart with other form of angina pectoris (HCC); Hypothyroidism (acquired) Discharge Disposition: Discharged to home or Selfcare 07/30/2024 Telephone [facility] Specialty [address] [place] [address] Wilson Teague PAC Prior Authorization (Prolia) 07/30/2024 Travel 07/21/2024 Telephone [facility] [address] [place] [phone] Wilson Teague PAC Need Order from Last 3 Months Immunizations Immunization Administration Dates Next Due Covid-19, Mrna, Lnp-s, PF, 1 00 mcg/0.5 mL Dose (Moderna) 09/26/2020,08/29/2020 Covid-19, Mrna, Lnp-s, Pf, 5 0 Mcg/0.5 Ml Dose 04/29/2023 Influenza Vaccine 05/07/2024,04/20/2018 Influenza Vaccine greater than 3 yrs 03/2020,04/08/2017,04/10/2016,2014,04/06/2014 Influenza, High-dose, Quadrivalent 05/07/2023,,04/12/2021 Influenza, Quadrivalent, Adjuvanted 04/14/2020 Influenza, Seasonal, Injecta ble, Undefined 04/06/2014 Influenza, Trivalent, Adjuvanted, PF 04/19/2018 Influenza, high-dose, trivalent, PF 10/0 07/2022,05/04/2019,04/07/2017,2015,04/10/2016,04/25/2015 Pneumococcal Vaccine - 13 Valent 06/06/2015 Pneumococcal Vaccine Adult - 23 Valent 08/18/2017,07/07/2006,07/07/1999 RSV, Recombinant, Protein Tobar bunit Rsvpref, Adjuvant Recon (Arexvy) 08/01/2023 Sars-cov-2 (Covid-19) Vaccin e, Unspecified 06/07/2024 TD VACCINE 07/07/2009 Zoster Vaccine Recombinant 12/10/2018,12/09/2018 ,10/10/2018 Zoster Vaccine, live 07/07/2007 Family History Medical History Relation Name Comments Heart Attack Father Heart Attack Mother Stroke Mother Diabetes Paternal Grandmother Relation Name Status Comments Father Mother Paternal Grandmother Social History Tobacco Use Types Packs/Day Years Used Date Smoking Tobacco: Never Smokeless Tobacco: Never Tobacco Cessation:Counseling Given: Not Answered Alcohol Use Standard Drinks/Week Comments No 0 (1 standard drink = 0.6 oz pur e alcohol) [facility] Utilities Answer Date Recorded In the past 12 months has th e electric, gas, oil, or water company threatened to shut off services in your home? No 08/06/2024 Social Connection and Isolat ion Panel [NHANES] Answer Date Recorded In a typical week, how many times do you talk on the phone with family, friends, or neighbors? More than three times a week 08/06/2024 How often do you get togethe r with friends or relatives? Once a week 08/06/2024 How often do you attend chur ch or worship services? More than 4 times per year 08/06/2024 Do you belong to any clubs o r organizations such as jew groups, unions, fraternal or athletic groups, or school groups? No 08/06/2024 How often do you attend meet ings of the clubs or organizations you belong to? Never 08/06/2024 Are you , , di vorced, , never , or living with a partner? 08/06/2024 AUDIT-C Answer Date Recorded Q1: How often do you have a drink containing alc ohol? Never 08/06/2024 Q2: How many drinks containi ng alcohol do you have on a typical day when you are drinking? Patient declined 08/06/2024 Q3: How often do you have si x or more drinks on one occasion? Never 08/06/2024 Overall Financial Resource Strain (CARDIA) Answe r Date Recorded How hard is it for you to pa y for the very basics like food, housing, medical care, and heating? Not very hard 08/06/2024 PHQ-2 Answer Date Recorded Total Score - Questions 1-9 0 07/09 [facility] - Occupational Stress Questionnaire Answer Date Recorded Do you feel stress - tense, restless, nervous, or anxious, or unable to sleep at night because your mind is troubled all the time - these days? Not at all 08/06/2024 Exercise Vital Sign Answer Date Recorde d On average, how many days pe r week do you engage in moderate to strenuous exercise (like a brisk walk)? 3 days 08/06/2024 On average, how many minutes do you engage in exercise at this level? 30 min 08/06/2024 Hunger Vital Sign Answer Date Recorded Within the past 12 months, y ou worried that your food would run out before you got the money to buy more. Never true 08/06/19 25 Within the past 12 months, t he food you bought just didn't last and you didn't have money to get more. Never true 08/06/2024 PRAPARE - Transportation Answer Date Re corded In the past 12 months, has l ack of transportation kept you from medical appointments or from getting medications? No 07/09 In the past 12 months, has l ack of transportation kept you from meetings, work, or from getting things needed for daily living? No 08/06/2024 Housing Stability Vital Sign Answer Russell e Recorded In the last 12 months, was t here a time when you were not able to pay the mortgage or rent on time? No 08/06/2024 In the past 12 months, how m any times have you moved where you were living? 1 08/06/2024 At any time in the past 12 m [facility], were you homeless or living in a intermediate (including now)? No 08/06/2024 Sexually Active Control Partners Comments Yes Male Comments No Sex and Gender Information Value Date Recorded Sex Assigned at Not on file Legal Sex Female 10:22 AM CDT Gender Identity Not on file Sexual Orientation Not on file Last Filed Vital Signs Vital Sign Reading Time Taken Comments Blood Pressure 165/67 08/26/2024 1:00 PM CLIENT ACCOUNT SPECIALIST Pulse 73 08/26/2024 1:00 PM CLIENT ACCOUNT SPECIALIST Temperature 36.4 C (97.5 F) 08/26/2024 1:00 PM CLIENT ACCOUNT SPECIALIST Respiratory Rate 16 08/26/2024 1:00 PM CLIENT ACCOUNT SPECIALIST Oxygen Saturation 98% 08/26/2024 1:00 PM CLIENT ACCOUNT SPECIALIST Inhaled Oxygen Concentration - - Weight 67.1 kg (148 lb) 08/06/2024 7:56 AM CLIENT ACCOUNT SPECIALIST Height 167.6 cm (5' 6 ) 01/30/2024 7:58 AM CDT Body Mass Index 23.89 01/30/2024 7:58 AM CDT Plan of Treatment Upcoming Encounters Date Type Department Care Team (Late st Contact Info) Description 12/28/2024 1:00 PM CDT Office Visit [facility] [address] [place] [address] Davey Peralta, BEVERAGE MANAGER, CYLINDER INSPECTOR [address] [place] [address] 02/01/2025 8:10 AM [facility] [address] [place] [address] [facility] 02/07/2025 8:30 AM CDT Office Visit [facility] [address] [place] [address] Wilson Teague PAC [address] [place] [address] Health Maintenance Due Date Last Done Comments TdaP Immunization 1935 SARS-COV-2 Immunization ( season) 2024 06/14/2024, 06/07/2024, 04/29/2023, Additional history exists Pneumococcal Immunization (50+ years) Completed 08/18/2017, 06/06/2015, 07/07/2006, Additional history exists Pneumococcal Immunization Combined Discontinued 08/18/2017, 06/06/2015, 07/07/2006, Additional history exists Zoster Immunization Completed 12/10/2018, 12/09/2018, 10/10/2018, Additional history exists DEXA Bone Density Discontinued 07/12/2020, 12/19/2017 Respiratory Syncytial Virus (RSV) Immunization (Adult) Completed 08/01/2023 Influenza Immunization Completed , 05/07/2024, 05/07/2023, Additional history exists Hepatitis B Immunization Aged Out No longer eligible based on patient's age to complete this topic Hepatitis C Virus (HCV) Screening Discontinued Meningococcal Immunization (ACWY) Aged Out No longer eligible based on patient's age to complete this topic Rotavirus Immunization Aged Out No lo nger eligible based on patient's age to complete this topic Procedures Procedure Name Priority Date/Time Associated Diagnosis Comments THYROID SCREEN WITH REFLEX Routine 07/30/2024 7:50 AM CLIENT ACCOUNT SPECIALIST Hypertension, unspecified type Hypothyroidism (acquired) CBC WITH AUTO DIFFERENTIAL Routine 07/30/2024 7:50 AM CLIENT ACCOUNT SPECIALIST Dyslipidemia THYROID SCREEN WITH REFLEX Routine 07/30/2024 7:50 AM CLIENT ACCOUNT SPECIALIST Hypertension, unspecified type Hypothyroidism (acquired) LIPID PANEL Routine 07/30/2024 7:50 AM CLIENT ACCOUNT SPECIALIST Coronary artery disease involving otoe-missouria coronary artery of otoe-missouria heart with other form of angina pectoris (HCC) Dyslipidemia CMP (COMPREHENSIVE METABOLIC PANEL) Routine 07/30/2024 7:50 AM CLIENT ACCOUNT SPECIALIST Hypertension, unspecified type Dyslipidemia COMPLETE BLOOD COUNT (CBC) WITH DIFF Routine 07/30/2024 7:50 AM CLIENT ACCOUNT SPECIALIST Dyslipidemia MARY BONE DENSITOMETRY AXIAL SKELETON Routine 07/12/2020 9:26 AM CLIENT ACCOUNT SPECIALIST Postmenopausal from Last 3 Months or Most Recently Relevant to Health Maintenance Results * THYROID SCREEN WITH REFLEX (07/30/2024 7:50 AM CLIENT ACCOUNT SPECIALIST) TSH 0.989 0.300 - 5.000 mIU/L 07/30/2024 1:44 PM CLIENT ACCOUNT SPECIALIST [facility] Blood Venipuncture / Unknown 07/30/2024 7:50 AM CLIENT ACCOUNT SPECIALIST 07/30/2024 7:50 AM CLIENT ACCOUNT SPECIALIST us Wilson Teague PAC CHEMISTRY ORDERABLES Final R esult [facility] [address] [place] [address] * (ABNORMAL) CBC WITH AUTO DIFFERENTIAL (07/30/2024 7:50 AM CLIENT ACCOUNT SPECIALIST) WBC 7.03 4.00 - 12.00 10(3)/mcL 07/30/2024 1:18 PM [facility] RBC 4.25 3.80 - 5.30 10(6)/mcL 07/30/2024 1:18 PM [facility] HEMOGLOBIN (HGB) 14.0 12.0 - 15.8 g/dL 07/30/2024 1:18 PM [facility] HEMATOCRIT (HCT) 42.2 36.0 - 47.0 % 07/30/2024 1:18 PM [facility] MCV 99.3(H) 82.0 - 96.0 fL 07/30/2024 1:18 PM [facility] MCH 32.9 26.0 - 34.0 pg 07/30/2024 1:18 PM [facility] MCHC 33.2 31.0 - 36.0 g/dL 07/30/2024 1:18 PM [facility] PLATELET COUNT 393 140 - 440 10(3)/[facility] 07/30/2024 1:18 PM [facility] RDW 13.2 11.8 - 15.5 % 07/30/2024 1:18 PM [facility] MPV 10.0 9.7 - 12.4 fL 07/30/2024 1:18 PM [facility] NEUTROPHILS 53.7 47.0 - 73.0 % 07/30/2024 1:18 PM [facility] LYMPHOCYTES 31.4 18.0 - 42.0 % 07/30/2024 1:18 PM [facility] MONOCYTES 11.5 4.0 - 12.0 % 07/30/2024 1:18 PM [facility] EOSINOPHILS 2.7 0.0 - 5.0 % 07/30/2024 1:18 PM [facility] BASOPHILS 0.7 0.0 - 1.0 % 07/30/2024 1:18 PM [facility] ABSOLUTE NEUTROPHILS 3.77 1.60 - 7.70 10(3)/mcL 07/30/2024 1:18 PM CLIENT ACCOUNT SPECIALIST [facility] ABSOLUTE LYMPHOCYTES 2.21 1.30 - 3.20 10(3)/mcL 07/30/2024 1:18 PM CLIENT ACCOUNT SPECIALIST [facility] ABSOLUTE MONOCYTES 0.81 0.20 - 1.00 10(3)/mcL 07/30/2024 1:18 PM CLIENT ACCOUNT SPECIALIST [facility] ABSOLUTE EOSINOPHIL 0.19 0.00 - 0.40 10(3)/mcL 07/30/2024 1:18 PM CLIENT ACCOUNT SPECIALIST [facility] ABSOLUTE BASOPHILS 0.05 0.00 - 0.10 10(3)/mcL 07/30/2024 1:18 PM CLIENT ACCOUNT SPECIALIST [facility] NRBC PER 100 WBC 0 07/30/19 1:18 PM [facility] Blood Venipuncture / Unknown 07/30/2024 7:50 AM CLIENT ACCOUNT SPECIALIST 07/30/2024 7:50 AM CLIENT ACCOUNT SPECIALIST Wilson Teague PAC HEMATOLOGY ORDERABLES Final Result [facility] [address] [place] [address] * (ABNORMAL) LIPID PANEL (07/30/2024 7:50 AM CLIENT ACCOUNT SPECIALIST) CHOLESTEROL 151 <200 mg/dL 07/30/2024 1:30 PM CLIENT ACCOUNT SPECIALIST [facility] TRIGLYCERIDES 168(H) <150 mg/dL 07/30/2024 1:30 PM CLIENT ACCOUNT SPECIALIST [facility] HDL CHOLESTEROL 47 >40 mg/dL 1:30 PM CLIENT ACCOUNT SPECIALIST [facility] LDL 70 <130 mg/dL 07/30/2024 1:30 PM CLIENT ACCOUNT SPECIALIST [facility] VLDL 34 10 - 50 mg/dL 07/30/2024 1:30 PM [facility] CHOL/HDL RATIO 3.2 0.0 - 4.4 07/30/2024 1:30 PM CLIENT ACCOUNT SPECIALIST [facility] NON-HDL CHOLESTEROL 104 <130 mg/dL 07/30/2024 1:30 PM CLIENT ACCOUNT SPECIALIST [facility] IS THE PATIENT REQUIRED TO BE FASTING? Yes 07/30/2024 1:30 PM [facility] HAS THE PATIENT BEEN FASTING? Yes 07/30/2024 1:30 PM [facility] Blood Venipuncture / Unknown 07/30/2024 7:50 AM CLIENT ACCOUNT SPECIALIST 07/30/2024 7:50 AM CLIENT ACCOUNT SPECIALIST us Wilson Teague PAC CHEMISTRY ORDERABLES Final R esult [facility] [address] [place] [address] * (ABNORMAL) CMP (COMPREHENSIVE METABOLIC PANEL) (07/30/2024 7:50 AM CLIENT ACCOUNT SPECIALIST) SODIUM 132(L) 136 - 145 mmol/L 07/30/2024 1:30 PM [facility] POTASSIUM 4.7 3.5 - 5.1 mmol/L 07/30/2024 1:30 PM [facility] CHLORIDE 102 98 - 107 mmol/L 07/30/2024 1:30 PM [facility] CO2, VENOUS 23 22 - 30 mmol/L 07/30/2024 1:30 PM [facility] ANION GAP 11.7 <18.0 mmol/L 07/30/2024 1:30 PM [facility] GLUCOSE 81 70 - 99 mg/dL 07/30/2024 1:30 PM [facility] BUN 11 10 - 20 mg/dL 07/30/2024 1:30 PM [facility] CREATININE, BLOOD 0.89 0.60 - 1.00 mg/dL 07/30/2024 1:30 PM [facility] BUN/CREATININE RATIO 12 12 - 20 ratio 07/30/2024 1:30 PM [facility] TOTAL PROTEIN 7.4 6.0 - 8.0 g/dL 07/30/2024 1:30 PM CLIENT ACCOUNT SPECIALIST [facility] ALBUMIN 4.3 3.5 - 5.0 g/dL 07/30/2024 1:30 PM [facility] A/G RATIO 1.4 1.0 - 2.2 07/30/2024 1:30 PM [facility] CALCIUM 9.1 8.7 - 10.5 mg/dL 07/30/2024 1:30 PM [facility] T BILI 0.7 0.2 - 1.2 mg/dL 07/30/2024 1:30 PM [facility] SGOT (AST) 30 6 - 42 U/L 07/30/2024 1:30 PM [facility] SGPT (ALT) 24 6 - 55 U/L 07/30/2024 1:30 PM [facility] ALKALINE PHOSPHATASE 37(L) 40 - 150 U/L 07/30/2024 1:30 PM [facility] IS THE PATIENT REQUIRED TO BE FASTING? Yes 07/30/2024 1:30 PM [facility] HAS THE PATIENT BEEN FASTING? Yes 07/30/2024 1:30 PM [facility] GFR, ESTIMATED >60 >=60 07/30/2024 1:30 PM [facility] Comment: Creatinine Clearance is the preferred criteria for selecting drug dose adjustments in renally impaired patients. The GFR is provided as additional pertinent clinical information. GFR is reported in mL/min/1.73 sq m. Calculation based on the Chronic Kidney Disease Epidemiology Collaboration (CKD- EPI) equation refit without adjustment for race. GFR, EST. >60 >=60 025 1:30 PM [facility] GFR, EST. NONAFRICAN 60 >=60 07/30/2024 1:30 PM [facility] Blood Venipuncture / Unknown 07/30/2024 7:50 AM CLIENT ACCOUNT SPECIALIST 07/30/2024 7:50 AM CLIENT ACCOUNT SPECIALIST us Wilson Teague PAC CHEMISTRY ORDERABLES Final R esult [facility] [address] [place] [address] * [facility] BONE DENSITOMETRY AXIAL SKELETON (07/12/2020 9:26 AM CLIENT ACCOUNT SPECIALIST) Anatomical Region Laterality Modality BODY N/A Other 07/12/2020 9:39 AM CLIENT ACCOUNT SPECIALIST Impressions 07/12/2020 9:42 AM CLIENT ACCOUNT SPECIALIST IMPRESSION: Osteoporosis by WHO criteria. REFERENCE: Bone mineral density: Normal (T-score above or = -1.0) Low bone mass (T-score between -1.0 and -2.5) replaces the previously used term osteopenia Osteoporosis (T-score = or below -2.5) Medical evaluation for secondary causes of low bone mineral density may be appropriate. FRAX is a World Health Organization validated fracture risk assessment tool that calculates a person's 10 year probability of a major osteoporosis related fracture and hip fracture. According to the National Osteoporosis Foundation guidelines, postmenopausal women and men age 50 or older with low bone mass and a 10 year probability of a major osteoporosis related fracture = or greater than 20% or a 10 year probability of a hip fracture = or greater than 3% should be considered for treatment. For further information, including treatment recommendations, please refer to the 2013 ISCD Official Positions (http://www.iscd.org) and the NOF's Clinician's Guide to Prevention and Treatment of Osteoporosis (http://www.nof.org/professionals/clinical-guidelines) Narrative 07/12/2020 9:42 AM CLIENT ACCOUNT SPECIALIST EXAM DESCRIPTION: [facility] BONE DENSITOMETRY AXIAL SKELETON REASON FOR STUDY: Post-menopausal female, screening for osteoporosis. Pearl Maker/Model: Compliance 11 (S/N [id number]) CLINICAL INFORMATION: Current height: 66 inches Maximum height: 66 inches Weight: 155 pounds Risk factors: History of a fracture as an adult, parental history of a hip fracture, rheumatoid arthritis COMPARISON: 12/19/2017 FINDINGS: AP LUMBAR SPINE L1-L4: Total BMD is 0.991 g/cm2 T-score is -1.6 Most recent prior BMD was 0.995 g/cm2 There has been a 0.4% decrease in BMD which is not statistically significant. LEFT HIP: Current Total BMD is 0.681 g/cm2 T-score is -2.6 Most recent prior Total BMD was 0.682 g/cm2 There has been a 0.1% decrease in BMD which is not statistically significant. Current femoral neck BMD is 0.614 g/cm2 T-score is -3.1 THIS IS AN ELECTRONICALLY VERIFIED FINAL REPORT 07/12/2020 9:39 AM - Electronically signed by Markie Regalado M.D. AB: AB Report ID: [id number] Reading Location: [id number] Procedure Note Markie Regalado MD - 07/12/2020 EXAM DESCRIPTION: [facility] BONE DENSITOMETRY AXIAL SKELETON REASON FOR STUDY: Post-menopausal female, screening for osteoporosis. Pearl Maker/Model: Compliance 11 (S/N [id number]) CLINICAL INFORMATION: Current height: 66 inches Maximum height: 66 inches Weight: 155 pounds Risk factors: History of a fracture as an adult, parental history of a hip fracture, rheumatoid arthritis COMPARISON: 12/19/2017 FINDINGS: AP LUMBAR SPINE L1-L4: Total BMD is 0.991 g/cm2 T-score is -1.6 Most recent prior BMD was 0.995 g/cm2 There has been a 0.4% decrease in BMD which is not statistically significant. LEFT HIP: Current Total BMD is 0.681 g/cm2 T-score is -2.6 Most recent prior Total BMD was 0.682 g/cm2 There has been a 0.1% decrease in BMD which is not statistically significant. Current femoral neck BMD is 0.614 g/cm2 T-score is -3.1 THIS IS AN ELECTRONICALLY VERIFIED FINAL REPORT 07/12/2020 9:39 AM - Electronically signed by Markie Regalado M.D. AB: Report ID: [id number] Reading Location: [id number] IMPRESSION: Osteoporosis by WHO criteria. REFERENCE: Bone mineral density: Normal (T-score above or = -1.0) Low bone mass (T-score between -1.0 and -2.5) replaces the previously used term osteopenia Osteoporosis (T-score = or below -2.5) Medical evaluation for secondary causes of low bone mineral density may be appropriate. FRAX is a World Health Organization validated fracture risk assessment tool that calculates a person's 10 year probability of a major osteoporosis related fracture and hip fracture. According to the National Osteoporosis Foundation guidelines, postmenopausal women and men age 50 or older with low bone mass and a 10 year probability of a major osteoporosis related fracture = or greater than 20% or a 10 year probability of a hip fracture = or greater than 3% should be considered for treatment. For further information, including treatment recommendations, please refer to the 2013 ISCD Official Positions (http://www.iscd.org) and the NOF's Clinician's Guide to Prevention and Treatment of Osteoporosis (http://www.nof.org/professionals/clinical-guidelines) Diamond Langley MD IMG DEXA ORDERABLES Final Re sult from Last 3 Months or Most Recently Relevant to Health Maintenance Insurance MEDICARE C AETNA Advance Directives Documents on File Type Date Recorded Patient Commercial Finance Analyst Expl anation Other Advance Directive 11/23/2021 3:36 PM 180 medical order form/fax confirmation Advance Care Planning Discussion 09/20/2021 3:11 PM MICROGEN LEVEL 2 REP ORT Power of Pneumatic Tester for Health Care 08/10/2018 1:18 PM POA Care Teams Records Technician Relationship Specialty Start Date End Date Wilson Teague, PAC [address] [place] [id number] PCP - General Physician Enterprise Infrastructure Architect 08/01/23 Prasanna Chowdary MD #2 [facility], [address] [address] Consulting Physician Urology 01/25/22 Davey Peralta, BEVERAGE MANAGER, CYLINDER INSPECTOR [address] [place] [address] Nurse Practitioner Advanced Practice Nurse 12/29/23
--- OUTSIDE RECORDS SUMMARY | 2024-09-01 01:00 | XMS_ITS | Encounter Summary ---
Author Organization [facility] Address [address] [place] [address] Phone Care Team Providers Care Contract Post Office Clerk Name Role Phone Diamond Langley MD Primary Care Provider + [phone] Felisha Gresham MD Primary Care Provider + [phone] Prasanna Chowdary MD Unavailable Wilson Teague Primary Care Provider + [phone] Davey Peralta APRN, SWATHI Unavailable + [phone] Reason for Visit * Reason Comments Medication Refill Encounter Details Date Type Department Care Team ([facility] Contact Info) Description 03/26/[address] [facility] [address] [place] [address] Diamond Langley MD [address] [place] [address] Medication Refill Social History Tobacco [...] Upcoming Encounters Date Type Department Care Team ([facility] Contact Info) Description 12/28/2024 1:00 PM CDT Office Visit [facility] [address] [place] [address] Davey Peralta APRN, DIRECTOR OF BROADCAST [address] [place] [address] 02/01/2025 8:10 AM CDT Lab [facility] [place] - [place] [address] [place] [address] [facility] 02/07/2025 8:30 AM CDT Office Visit [facility] [place] - [place] [address] [place] [address] [facility] [address] [place] [address] documented as of this encounter Visit Diagnoses Not on filedocumented in this encounter Additional Health Concerns Infection Onset Date Last Indicated Resolved Time COVID - 19 05/24/2024 05/24/2024 05/24/2024 9:51 AM APRON MAN Respiratory Rule-Out 05/24/2024 05/24/2024 024 10:01 AM APRON MAN COVID - 19 Confirmed 05/24/2024 05/24/2024 024 12:16 AM APRON MAN Assessment Noted Time PHQ-9 Depression Total Score: 0 12/16/19 19 8:00 AM CDT documented as of this encounter Care Teams Contract Post Office Clerk Relationship Specialty Start Date End Date Diamond Langley MD PCP - General Family Medicine 04/09/15 11/24/22 Felisha Gresham MD [address] [place] [address] PCP - General Family Medicine 01/08/23 07/31/23 Wilson Teague, PAC [address] [place] [address] PCP - General Physician Cook Helper Preserves 08/01/23 Prasanna Chowdary MD #[address] [address] Consulting Physician Urology 01/25/22 Davey Peralta, APRON MAN, DIRECTOR OF BROADCAST [address] [address] Nurse Practitioner Advanced Practice Nurse 12/29/23 documented as of this encounter
--- NOTE | 2024-09-01 07:07 | WPDHPUPDATE1 ---
History and Physical Update Update Date/Time: 09/01/24 07:07 Patient seen and examined in pre-operative holding area. No interval change in medical history or symptoms. Patient recalls previous discussion of benefits and alternatives to procedure. Continues to desire to proceed with left wrist artrhoscopy, possible debridement, left extensor carpi ulnaris tenosynovectomy and sheath reconstruction/release, left ulnar styloidectomy and excision intraosseous ganglion/cyst. Reviewed procedure, post-op expectations and risks including but not limited to bleeding, infection, injury to tendon/nerve/vessel, decreased hand function, stiffness, RSD, no change or worsening of symptoms, recurrence. I discussed the possible use of assistants and their participation in the case. Patient stated understanding and signed the consent form wishing to proceed.
--- NOTE | 2024-09-01 07:08 | P.OP_ITS ---
Procedure Note - Detailed Date of Procedure 09/01/24 Pre-op Diagnosis Spran Carpal Joint Lt Wrist,Ganglion Cyst Lt Wrist Post-op Diagnosis Same Procedure Performed left wrist scope , left ecu tenosynovectomy,, ulnar styloidectomy and excision intraosseous ganglion/cyst, left tfcc release Surgeon Estee Mcdermott MD Quantitative Consultant rain dominguez pa-c Anesthesia General Description of Procedure INFORMED CONSENT: The patient was seen and examined and marked in the pre-op area.? The patient signed the consent form. PROCEDURE IN DETAIL:The patient taken back to OR on the stretcher in supine position. Time out performed with anesthesia, surgeon and staff agreeing on patient's name site and surgery to be performed SCDs were placed on the lower extremities and inflated. A tourniquet was placed on {left} upper extremity and antibiotics given IV After anesthesia administered sedation I injected {8}cc 1%lido with epi and 0.5% marcaine plain at the operative site The?{left upper extremity}?was prepped and draped in sterile fashion the??{left upper extremity} was? exsanguinated with Esmarch bandage and tourniquet inflated to 250mmHg The acumed traction tower was assebled and brought into the field. Utilizing finger traps the left hand was positioniged and 10mmHg traction applied. 1cc 1%lido with epi injected to identify joint space and plan for portal incision sites. 15 blade scalpel used to make incision for 4U and 6R portals through skin and dermis. curved hemostat used to bluntly dissect through subq and enter unocarpal joint. arthrex nanoscope placed through 4U portal identifying a complete tear of tfcc articular disc from the dorsal ulnar surface. arthroscopic shaver and cautery was utilized to remove extensie synovitis and cauterize hyperemic tissue. The joint was irrigated with normal saline. The wrist was taken off traction. Next I proceedd with making a longiutinal incision over left ecu including the 6r portal incision through skin and dermis with 15 blade scalpel. Littler scissors were used to spread down to extensor retinaculum and ecu sheath. The dorsal ulnar sensory nerve was identified, noted to be intact, and protected and retracted ulnarly thorughout procedure. I made an incision in the ecu sheath and extensor retinaculum revelaing a signficant amount of tenosynovitis. This was excised from the tendon with littler scissors and bipolar cautery. Nest, mini c-arm was brought in to verify ulnar styloid and intraosseous cyst location. osteomat was used to remove the distal aspect of ulnar styloid allowing access to the larger cyst cavity which contained thickened synoviial like jelly. This cyst cavity was curetted and irrigated with normal saline. Next I proceeded with TFCC repair. 3-0 fiberwire was used for horizontal mattress of the tfcc disc and dorsal capsule and then secured to the ulnar using an arthrex pushlock anchor in standard fashion. mini c-arm verified placement of anchor. The druj was stable after repair without significant ulnar laxity in pronation or supination. I irrgiated with normal saline. 3-0 vicryl was used to loosely repair the extensor sheath and there was no volar subluxation of the ecu. Skin was closed with 3-0 vicryl and 4-0 chromic. A dressing of xeroform, 4x4, vernon, and an ulnar gutter splint was applied for patient safety, security, and comfort and secured with an stepan bandage after the tourniquet was let down noting the hand was warm and well perfused. The patient was then awaken from anesthesia and transferred to the recovery room in stable condition.? Complications - none EBL- 2cc Disposition - home in stable conditions Rain Dominguez PA-C was essential for positioning, retraction, instrumentation, fluoro, closure and dressing placement [facility] Billing Surgery - Charge Forward: Surgery Billing ([id number] same for rain fuentes )
[2024-09-01] MEDS: LACTATED RINGERS 1,000 ML 30 ML IV CONT ×2 (11:15→13:49)
--- NOTE | 2024-09-01 11:37 | WPDANESEPPF ---
Anes - Initial Pre Proc Eval Procedure: Operation Date: 09/01/24 12:45 Proposed Procedures p Left Wrist Arthroscopy, Possible Debridement Left Wrist Tenosynovectomy, Possible Ganglion Cyst Excision, Left Ulnar Styloidectomy Intraosseous Ganglion Cyst Excision - Estee Mcdermott MD Date/Time: 09/01/24 11:37 Surgeon: Estee Mcdermott MD Pre Op Diagnosis: Spran Carpal Joint Lt Wrist,Ganglion Cyst Lt Wrist Patient Data Age: 89 Gender: F Height: 1.68 m Weight: 66.4 kg Allergies Allergy/AdvReac Type Severity Reaction Status Date / Time codeine Allergy Unknown HIVES Verified 09/01/24 11:30 tetracycline Allergy Unknown HIVES Verified 09/01/24 11:30 Home Medications ?Medication ?Instructions ?Recorded ?Confirmed ?Type amlodipine 10 mg tablet 10 mg PO DAILY 06/05/21 08/24/24 History levothyroxine 75 mcg capsule 75 mcg PO DAILY 06/05/21 08/24/24 History clopidogrel 75 mg tablet 75 mg PO DAILY 06/13/23 08/24/24 History cyanocobalamin (vitamin B-12) 1,000 mcg PO DAILY 06/13/23 08/24/24 History 1,000 mcg tablet lactobacillus combination no.8 3 3 cell PO DAILY 06/13/23 08/24/24 History billion cell capsule potassium 99 mg tablet 99 mg PO DAILY 06/13/23 08/24/24 History vitamin A 2,400 mcg capsule 2,400 mcg PO DAILY 06/13/23 08/24/24 History acetaminophen 500 mg tablet 1,000 mg PO Q6H PRN pain 08/24/24 08/24/24 History (Tylenol Extra Strength) cholecalciferol (vitamin D3) 50 2,000 unit PO DAILY 08/24/24 08/24/24 History mcg (2,000 unit) capsule denosumab 60 mg/mL subcutaneous 60 mg subcut [id number] 08/24/24 08/24/24 History syringe (Prolia) fluticasone 250 mcg-salmeterol 50 1 inh inhalation Q12H 08/24/24 08/24/24 History mcg/dose blistr powdr for inhalation (Wixela Inhub) losartan 50 mg tablet 50 mg PO QAM 08/24/24 08/24/24 History Patient hx anesthesia problems: none Family hx anesthesia problems: none Results Review: All pre-operative results and documents have been reviewed as part of the pre-operative evaluation. [facility] Social History Social History Smoking status: Never smoker Alcohol intake: never Substance use: current Substance use type: does not use Lack of Transportation: No Lack of Food: Never True Current Housing: I Have Housing Concerned About Future Housing: No Difficulty Paying Gas/Electric Bills: No Difficulty Paying for Meds: No Currently Unemployed: No Education: High School Diploma/GED Difficulty w/ Childcare or Family Care: No Living arrangements: with family Spiritual care concerns: No Anes - Eval Final PreProcedure Day of Procedure 09/01/24 11:37 Patient weight: overweight Lungs: normal air movement Airway: Mallampati scale class II and special considerations (Edentulous. ) Neurological: alert and oriented Last oral intake: >/= 8 hours ASA classification: III Emergent: no Anesthetic plan: proceed Anesthesia type and monitoring: general LMA and standard monitoring Results Review: All pre-operative results and documents have been reviewed as part of the pre-operative evaluation. HTN, hypothyroidism. Informed Consent: The patient's anesthetic plan and its attendant risks and benefits were discussed with the patient/family/POA. Questions were solicited and answers provided to the satisfaction of the patient/family/POA.
[2024-09-01] MEDS: ceFAZolin 2 GM/D5W 50 ML 2 GM/50 ML BAG IVPB (12:00)
[2024-09-01] MEDS: LIDO 1%/EPINEPHRINE 1:100,000 50 ML VIAL 10 ML INFILTRATE (12:17)
[2024-09-01] MEDS: ACETAMINOPHEN 500 MG TABLET 1000 MG PO (15:00)
== END 2024-09-01 15:50 | disposition home or self-care (01) ==
PROVIDERS: Visit Provider Plastic Surgery
PROC: (CPT 29840; principal; 2024-09-01 12:45)
DX: S63.512A Sprain of carpal joint of left wrist, initial encounter (principal); M67.432 Ganglion, left wrist; M65.842 Other synovitis and tenosynovitis, left hand; X58.XXXA Exposure to other specified factors, initial encounter; Z79.02 Long term (current) use of antithrombotics/antiplatelets; Z79.51 Long term (current) use of inhaled steroids
CPT/HCPCS: 25118; 25120; 25107; 88304; 88309; 88311; 99199; A9270; C1713; J0690; J1100; J2004; J2405; J2704; J3010; J7120

== ENCOUNTER 2024-09-27 10:08 | Outpatient (CLI) | payer MEDICARE, SELFPAY ==
--- NOTE | ~2024-09-27 | XR_ITS ---
XR wrist LT min 3V Ordering provider: Pamela Edmonds PA-C History: . PT HAD GANGLION CYST REMOVED 08/31,IN SPLINT XRAYS . Comparison: March 07, 2023 FINDINGS: BONES: No acute fracture or dislocation. No definite scaphoid fracture. Lucency is seen in the ulnar styloid. Cast is seen around the wrist area. JOINT SPACES: Osteoarthritic changes of the scaphotrapezial joint. SOFT TISSUES: Normal. IMPRESSION: No acute osseous abnormality left wrist. Lucency seen in the ulnar styloid. Osteoarthritic changes. Reviewed, dictated and finalized at location A.
--- OUTSIDE RECORDS SUMMARY | 2024-09-27 11:39 | XMS_ITS | Encounter Summary ---
Author Organization [facility] Address [address] [place] [address] Phone Care Team Providers Care Pulp Machine Operator Name Role Phone Diamond Langley MD Primary Care Provider + [phone] Felisha Gresham MD Primary Care Provider + [phone] Prasanna Chowdary MD Unavailable Wilson Teague Primary Care Provider + [phone] Davey Peralta APRN, SWATHI Unavailable + [phone] Reason for Visit * Reason Comments Medication Refill Encounter Details Date Type Department Care Team (Late st Contact Info) Description [facility]/20[facility] [address] [place] [address] Diamond Langley MD [address] [place] [address] Medication Refill Social History Tobacco [...] Dept 01/09/21 Office Visit Diamond Langley MD [facility] 07/14/20 Telemedicine Diamond Langley MD [facility] 07/10/20 Office Visit Diamond Langley MD [facility] Showing recent visits within past 365 days and meeting all other requirements Future Appointments No visits were found meeting these conditions. Showing future appointments within next 90 days and meeting all other requirements documented in this encounter Plan of Treatment Upcoming Encounters Date Type Department Care Team (Late st Contact Info) Description 12/28/2024 1:00 PM CDT Office Visit [facility] [address] [place] [address] Davey Peralta, EXCHANGE TROUBLE SHOOTER, OCC MED PHYSICIAN [address] [place] [address] 02/01/2025 8:10 AM CDT Lab [facility] [place] [facility] [place] [address] [place] [address] [facility] 02/07/2025 8:30 AM CDT Office Visit [facility] [place] [facility] [place] [address] [place] [address] Wilson Teague, PAC [address] [place] [address] documented as of this encounter Visit Diagnoses Diagnosis Hypothyroidism (acquired) Unspecified hypothyroidism documented in this encounter Additional Health Concerns Infection Onset Date Last Indicated Resolved Time COVID - 19 05/24/2024 05/24/2024 05/24/2024 9:51 AM GI TECH Respiratory Rule-Out 05/24/2024 05/24/2024 024 10:01 AM GI TECH COVID - 19 Confirmed 05/24/2024 05/24/2024 024 12:16 AM GI TECH Assessment Noted Time PHQ-9 Depression Total Score: 0 12/16/19 19 8:00 AM CDT documented as of this encounter Care Teams Pulp Machine Operator Relationship Specialty Start Date End Date Diamond Langley MD PCP - General Family Medicine 04/09/15 11/24/22 Felisha Gresham MD [address], [place] [id number] PCP - General Family Medicine 01/08/23 07/31/23 Wilson Teague, PAC [address] [place] [address] PCP - General Physician Jet Wiper 08/01/23 Prasanna Chowdary MD #[address] [address] Consulting Physician Urology 01/25/22 Davey Peralta APRN, OCC MED PHYSICIAN [address] [place] [address] Nurse Practitioner Advanced Practice Nurse 12/29/23 documented as of this encounter
--- OUTSIDE RECORDS SUMMARY | 2024-09-27 11:39 | XMS_ITS | Encounter Summary ---
Author Organization [facility] Address [address] [place] [address] Phone Care Team Providers Care Therapeutic Riding Instructor Name Role Phone Diamond Langley MD Primary Care Provider + [phone] Felisha Gresham MD Primary Care Provider + [phone] Prasanna Chowdary MD Unavailable Wilson Teague Primary Care Provider + [phone] Davey Peralta APRN, SWATHI Unavailable + [phone] Reason for Visit * Reason Comments Medication Refill Encounter Details Date Type Department Care Team (Late st Contact Info) Description [facility]/12[facility] [address] [place] [address] Diamond Langley MD [address] [place] [address] Medication Refill Social History Tobacco [...] Nakia Lala RN - 09/13/2020 9:43 AM AIRFIELD ENGINEER OFFICER Medication failed the protocol, provider to review [...] unspecified osteoporosis type, unspecified pathological fracture presence [facility] Diamond Langley MD 2 months ago Physical exam, annual (Adult) [facility] Diamond Langley MD 1 year ago Essential hypertension with goal blood pressure less than 140/90 [facility] Diamond Langley MD 1 year ago Essential hypertension with goal blood pressure less than 140/90 [facility] Diamond Langley MD 2 years ago Essential hypertension with goal blood pressure less than 140/90 [facility] Diamond Langley MD Upcoming Appointments Future Appointments In 3 months [facility] In 3 months Diamond Langley MD [facility] PONY RIDE ATTENDANT - Recent and Past Visits Recent Visits Date Type Provider Dept 07/14/20 Telemedicine Diamond Langley MD [facility] 07/10/20 Office Visit Diamond Langley MD [facility] 06/18/19 Office Visit Diamond Langley MD [facility] Showing recent visits within past 460 days with a meds authorizing provider and meeting all other requirements Future Appointments No visits were found meeting these conditions. Showing future appointments within next 90 days with a meds authorizing provider and meeting all other requirements IELD ENGINEER OFFICER documented in this encounter Plan of Treatment Upcoming Encounters Date Type Department Care Team (Late st Contact Info) Description 12/28/2024 1:00 PM CDT Office Visit [facility] [address] [place] [address] Davey Peralta, BAGGAGE HANDLING SUPERVISOR, COMPUTER CONSULTANT [address] [place] [address] 02/01/2025 8:10 AM CDT Lab [facility] [place] [address] [place] [address] [facility] 02/07/2025 8:30 AM CDT Office Visit [facility] [address] [place] [address] Wilson Teague PAC [address] [place] [address] documented as of this encounter Visit Diagnoses Diagnosis Hypothyroidism (acquired) Unspecified hypothyroidism documented in this encounter Additional Health Concerns Infection Onset Date Last Indicated Resolved Time COVID - 19 05/24/2024 05/24/2024 05/24/2024 9:51 AM AIRFIELD ENGINEER OFFICER Respiratory Rule-Out 05/24/2024 05/24/2024 024 10:01 AM AIRFIELD ENGINEER OFFICER COVID - 19 Confirmed 05/24/2024 05/24/2024 024 12:16 AM AIRFIELD ENGINEER OFFICER Assessment Noted Time PHQ-9 Depression Total Score: 0 12/16/19 19 8:00 AM CDT documented as of this encounter Care Teams Therapeutic Riding Instructor Relationship Specialty Start Date End Date Diamond Langley MD PCP - General Family Medicine 04/09/15 11/24/22 Felisha Gresham MD [address] [place] [address] PCP - General Family Medicine 01/08/23 07/31/23 Wilson Teague, PAC [address] [place] [address] PCP - General Physician Textile Screen Printer 08/01/23 Prasanna Chowdary MD #[address] [address] Consulting Physician Urology 01/25/22 Davey Peralta APRN, COMPUTER CONSULTANT [address] [place] [address] Nurse Practitioner Advanced Practice Nurse 12/29/23 documented as of this encounter
--- OUTSIDE RECORDS SUMMARY | 2024-09-27 11:39 | XMS_ITS | Encounter Summary ---
Author Organization [facility] Address [address] [place] [address] Phone Care Team Providers Care Cold Reduction Roller Name Role Phone Diamond Langley MD Primary Care Provider + [phone] Felisha Gresham MD Primary Care Provider + [phone] Prasanna Chowdary MD Unavailable Wilson Teague Primary Care Provider + [phone] Davey Peralta APRN, CNP Unavailable + [phone] Reason for Visit * Reason Comments Medication Refill Encounter Details Date Type Department Care Team (Late st Contact Info) Description 08/15/2020 Refill [facility] [address] [facility] [place] [place] [address] Brendan Anne MD [address] [facility] [address] [place] [address] Medication Refill Social History Tobacco Use Types [...] Brendan Anne MD - 08/16/2020 1:19 PM [employer] Schedule follow up appointment [employer] documented in this encounter Plan of Treatment Upcoming Encounters Date Type Department Care Team (Late st Contact Info) Description 12/28/2024 1:00 PM CDT Office Visit [facility] [address] [place] [address] Davey Peralta, SUPERVISOR NET MAKING, SUPERVISOR PRODUCTION DEPARTMENT [address] [place] [address] 02/01/2025 8:[address] [facility] [place] [facility] [place] [address] [place] [address] [facility] 02/07/2025 8:30 AM CDT Office Visit [facility] [place] [facility] [place] [address] [place] [address] Wilson Teague PAC [address] [place] [address] documented as of this encounter Visit Diagnoses Diagnosis Recurrent UTI Urinary tract infection, site not specified documented in this encounter Additional Health Concerns Infection Onset Date Last Indicated Resolved Time COVID - 19 05/24/2024 05/24/2024 05/24/2024 9:51 AM HUMAN RESOURCE INTERNSHIP Respiratory Rule-Out 05/24/2024 05/24/2024 024 10:01 AM H[employer]OURCE INTERNS[employer]IP COVID - 19 Confirmed 05/24/2024 05/24/2024 024 12:16 AM [employer] INTERNS[employer]IP Assessment Noted Time PHQ-9 Depression Total Score: 0 12/16/19 8:00 AM CDT documented as of this encounter Care Teams Cold Reduction Roller Relationship Specialty Start Date End Date Diamond Langley MD PCP - General Family Medicine 04/09/15 11/24/22 Felisha Gresham MD [address] [place], [place] [id number] PCP - General Family Medicine 01/08/23 07/31/23 Wilson Teague, [facility] [address] [place] [phone] PCP - General Physician Typesetters Printer 08/01/23 Prasanna Chowdary MD [address] [address] Consulting Physician Urology 01/25/22 Davey Peralta, SUPERVISOR NET MAKING, SUPERVISOR PRODUCTION DEPARTMENT [address] [facility] [place] [address] Nurse Practitioner Advanced Practice Nurse 12/29/23 documented as of this encounter
--- OUTSIDE RECORDS SUMMARY | 2024-09-27 11:39 | XMS_ITS | Clinical Summary ---
Author Organization [facility] Address [address] [facility] [place] [address] Care Team Providers Care Equal Opportunity Officer Name Role Phone Unavailable Primary Care Provider Unavailabl e Source Comments [facility],non-owned Affiliates and Associated Physician Practices is amultiple site organization consisting of ambulatory clinics and hospital sitesin [place], [place], [place] and [place]. This disclosure is being madepursuant to the Care Everywhere program and may not contain all information available regarding this patient. Last updated 18.[facility] Social History Tobacco Use Types Packs/Day Years [...] to complete this topic MENINGOCOCCAL (Group B) VACC INE SHARED DECISION-MAKING Aged Out No longer eligibl e based on patient's age to complete this topic MENINGOCOCCAL GROUPS A/C/Y/W VACCINE Aged Out No longer eligible b ased on patient's age to complete this topic
--- OUTSIDE RECORDS SUMMARY | 2024-09-27 11:39 | XMS_ITS | Encounter Summary ---
Author Organization [facility] Address [address] [place] [address] Phone Care Team Providers Care Taper/Finisher Name Role Phone Diamond Langley MD Primary Care Provider + [phone] Felisha Gresham MD Primary Care Provider + [phone] Prasanna Chowdary MD Unavailable Wilson Teague Primary Care Provider + [phone] Davey Peralta APRN, SWATHI Unavailable + [phone] Reason for Visit * Reason Comments Medication Refill Encounter Details Date Type Department Care Team (Late st Contact Info) Description 06/13/2021 [facility] [address] [place] [address] Diamond Langley MD [address] [place] [address] Medication Refill Social History Tobacco [...] COVID-19? No / Unsure 06/11/2021 9:20 AM WHITE METAL CASTER documented as of this encounter Miscellaneous Notes * Telephone Encounter - Gricel Diaz RN - 06/13/2021 12:07 PM CST amLODIPine (NORVASC) 10 MG Tablet 90 Tablet 0 06/04/2021 E METAL CASTER documented in this encounter Plan of Treatment Upcoming Encounters Date Type Department Care Team (Late st Contact Info) Description 12/28/2024 1:00 PM CDT Office Visit [facility] [address] [place] [address] Davey Peralta, BRAIN PICKER, SENIOR IT ENGINEER [address] [place] [address] 02/01/2025 8:10 AM CDT Lab [facility] [address] [place] [phone] [facility] 02/07/2025 8:30 AM CDT Office Visit [facility] [address] [place] [id number] Wilson Teague PAC [address] [place] [address] documented as of this encounter Visit Diagnoses Not on filedocumented in this encounter Additional Health Concerns Infection Onset Date Last Indicated Resolved Time COVID - 19 05/24/2024 05/24/2024 05/24/2024 9:51 AM WHITE METAL CASTER Respiratory Rule-Out 05/24/2024 05/24/2024 10:01 AM WHITE METAL CASTER COVID - 19 Confirmed 05/24/2024 05/24/2024 12/08/2 024 12:16 AM WHITE METAL CASTER Assessment Noted Time PHQ-9 Depression Total Score: 0 12/16/19 19 8:00 AM CDT documented as of this encounter Care Teams Taper/Finisher Relationship Specialty Start Date End Date Diamond Langley MD PCP - General Family Medicine 04/09/15 11/24/22 Felisha Gresham MD [address] [place] [address] PCP - General Family Medicine 01/08/23 07/31/23 Wilson Teague PAC [address] [place] [address] PCP - General Physician Drift Miner 08/01/23 Prasanna Chowdary MD [address] [address] Consulting Physician Urology 01/25/22 Davey Peralta APRN, SENIOR IT ENGINEER [address] [place] [address] Nurse Practitioner Advanced Practice Nurse 12/29/23 documented as of this encounter
--- OUTSIDE RECORDS SUMMARY | 2024-09-27 11:39 | XMS_ITS | Encounter Summary ---
Author Organization [facility] Address [address] [place] [address] Phone Care Team Providers Care Deck Steward Name Role Phone Diamond Langley MD Primary Care Provider + [phone] Felisha Gresham MD Primary Care Provider + [phone] Prasanna Chowdary MD Unavailable Wilson Teague Primary Care Provider + [phone] Davey Peralta APRN, SWATHI Unavailable + [phone] Reason for Visit * Reason Comments Medication Refill Encounter Details Date Type Department Care Team ([facility] Contact Info) Description 03/26/2021 Refill [facility] [address] [place] [address] Diamond Langley MD [address] [place] [address] Medication Refill Social History Tobacco [...] Upcoming Encounters Date Type Department Care Team ([facility] Contact Info) Description 12/28/2024 1:00 PM CDT Office Visit [facility] [address] [place] [address] Davey Peralta APRN, AWS SOFTWARE DEVELOPMENT ENGINEER [address] [place] [address] 02/01/2025 8:10 AM CDT Lab [facility] [address] [place] [address] [facility] 02/07/2025 8:30 AM CDT Office Visit [facility] [address] [place] [address] Wilson Teague [facility] [address] [place] [address] documented as of this encounter Visit Diagnoses Not on filedocumented in this encounter Additional Health Concerns Infection Onset Date Last Indicated Resolved Time COVID - 19 05/24/2024 05/24/2024 05/24/2024 9:51 AM DEVELOPMENT ASSOCIATE Respiratory Rule-Out 05/24/2024 05/24/2024 024 10:01 AM DEVELOPMENT ASSOCIATE COVID - 19 Confirmed 05/24/2024 05/24/2024 024 12:16 AM DEVELOPMENT ASSOCIATE Assessment Noted Time PHQ-9 Depression Total Score: 0 12/16/19 19 8:00 AM CDT documented as of this encounter Care Teams Deck Steward Relationship Specialty Start Date End Date Diamond Langley MD PCP - General Family Medicine 04/09/15 11/24/22 Felisha Gresham MD [address] [place] [address] PCP - General Family Medicine 01/08/23 07/31/23 Wilson Teague, PAC [address] [place] [address] PCP - General Physician Plate Painter Apprentice 08/01/23 Prasanna Chowdary MD [address] [address] Consulting Physician Urology 01/25/22 Davey Peralta, FUTURES TRADER, AWS SOFTWARE DEVELOPMENT ENGINEER [address] [place] [address] Nurse Practitioner Advanced Practice Nurse 12/29/23 documented as of this encounter
--- OUTSIDE RECORDS SUMMARY | 2024-09-27 11:39 | XMS_ITS | Clinical Summary ---
Author Organization [facility] Care Team Providers Care Wind Power Project Manager Name Role Phone Prasanna Chowdary MD Unavailable Wilson Teague Primary Care Provider + [phone] Davey Peralta APRN, FUN HOUSE OPERATOR Unavailable + [phone] Allergies Active Allergy Reactions Criticality Noted Date Comments Codeine Hives,Rash Tetracyclines & Related Hives,Rash Medications clopidogrel (PLAVIX) 75 MG Tablet Take 75 mg by mouth daily. 7 Active Probiotic Product (PROBIOTIC DAILY PO) Take by mouth. Activ e Cyanocobalamin (VITAMIN B12 PO) Take by mouth daily. Active Wixela Inhub 250-50 MCG/ACT AEROSOL POWDER, BREATH ACTIVATED INHALE 1 PUFF BY MOUTH TWICE A DAY DIRECTED 4 Active levothyroxine (SYNTHROID) 75 MCG TabletIndication s:Hypothyroidism (acquired) TAKE 1 TABLET BY MOUTH EVERY DAY 90 Tablet 1 4 Active losartan (COZAAR) 50 MG TabletIndication s:Hypertension, unspecified type Take 1 Tablet by mouth daily. 90 Tablet 1 5 Active amLODIPine (NORVASC) 10 MG Tablet TAKE 1 TABLET BY MOUTH EVERY DAY 90 Tablet 5 Active Denosumab (PROLIA) 60 MG/ML Solution Prefilled SyringeIndicatio ns:Age-related osteoporosis without current pathological fracture,Osteopo rosis, unspecified osteoporosis type, unspecified pathological fracture presence 1 mL by Subcutaneous route See Admin Instructions. 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 Statin intolerance 12/16/2016 Recurrent UTI 09/23/2016 Dyslipidemia 12/05/2015 Coronary artery disease invo lving [place] coronary artery of [place] heart 12/05/2015 Hypothyroidism (acquired) 12/05/2015 Hypertension 12/05/2015 Pulmonary nodule 12/05/2015 Resolved Problems Problem Noted Date Diagnosed Date Resolved Date Platelet disorder 06/16/2017 12/15/2017 Shortness of breath 06/10/2016 07/10/19 21 Renal cyst 12/05/2015 06/10/2016 Encounters Date Type Department Care Team Description 08/26/2024 1:00 PM UNDERGRADUATE INTERN Clinical Support [facility] Services [address] [place] [address] Wilson Teague PAC Osteoporosis, unspecified osteoporosis type, unspecified pathological fracture presence Discharge Disposition: Discharged to home or Selfcare 08/26/2024 Travel 08/26/2024 Telephone [facility] [address] [place] [address] Wilson Teague, PAC Need Order (prolia) 08/26/2024 Telephone [facility] [address] [place] [address] Wilson Teague, PAC Need Order 08/17/2024 Refill [facility] [address] [place] [address] Wilson Teague, PAC Medication Refill 08/06/2024 8:00 AM UNDERGRADUATE INTERN Office Visit [facility] [place] [place] [address] Wilson Teague PAC Hypothyroidism (acquired) (Primary Dx); Hypertension, unspecified type; Dyslipidemia; Coronary artery disease involving [place] coronary artery of [place] heart with other form of angina pectoris (HCC); Persistent cough Discharge Disposition: Discharged to home or Selfcare 08/06/2024 Travel 08/01/2024 Results Follow-Up [address] [address] Wilson Teague PAC 07/30/2024 8:00 AM UNDERGRADUATE INTERN Lab [address] [address] Lab, [facility] Dyslipidemia; Hypertension, unspecified type; Coronary artery disease involving [place] coronary artery of [place] heart with other form of angina pectoris (HCC); Hypothyroidism (acquired) Discharge Disposition: Discharged to home or Selfcare 07/30/2024 Telephone [facility] [address] [place] [address] Wilson Teague PAC Prior Authorization (Prolia) 07/30/2024 Travel 07/21/2024 Telephone [facility] [address] [place] [address] Wilson Teague PAC Need Order from Last [...] Adjuvanted, PF 04/19/2018 Influenza, high-dose, trivalent, PF 10/ 07/2022,05/04/2019,04/07/2017,2015,04/10/2016,04/25/2015 Pneumococcal Vaccine - 13 Valent 06/06/2015 [...] drink = 0.6 oz pur e alcohol) [facility] Answer Date Recorded In the past 12 months has [employer], gas, oil, or water [employer] threatened to shut off services in your [...] 08/06/2024 How often do you attend chur or moravian services? More than 4 times per year 08/06/2024 Do you belong to any clubs o r organizations such as protestant groups, unions, fraternal or athletic groups, or [...] Total Score - Questions 1-9 0 07/09 [facility] - Occupational Stress [...] any time in the past 12 m [facility], were you homeless or living in a care home (including now)? No 08/06/2024 Sexually Active Control Partners Comments Yes Male Comments No Sex and Gender Information Value Date Recorded Sex Assigned at Not on file Legal Sex Female 10:22 AM CDT Gender Identity Not on file Sexual Orientation Not on file Last Filed Vital Signs Vital Sign Reading Time Taken Comments Blood Pressure 165/67 08/26/2024 1:00 PM UNDERGRADUATE INTERN Pulse 73 08/26/2024 1:00 PM UNDERGRADUATE INTERN Temperature 36.4 C (97.5 F) 08/26/2024 1:00 PM UNDERGRADUATE INTERN Respiratory Rate 16 08/26/2024 1:00 PM UNDERGRADUATE INTERN Oxygen Saturation 98% 08/26/2024 1:00 PM UNDERGRADUATE INTERN Inhaled Oxygen Concentration - - Weight 67.1 kg (148 lb) 08/06/2024 7:56 AM UNDERGRADUATE INTERN Height 167.6 cm (5' 6 ) 01/30/2024 7:58 AM CDT Body Mass Index 23.89 01/30/2024 7:58 AM CDT Plan of Treatment Upcoming Encounters Date Type Department Care Team (Late st Contact Info) Description 12/28/2024 1:00 PM CDT Office Visit [facility] [address] [place] [address] Davey Peralta, SWITCHBOARD TROUBLESHOOTER, FUN HOUSE OPERATOR [address] [place] [address] 02/01/2025 8:10 AM CDT Lab [facility] [address] [place] [phone] [facility] 02/07/2025 8:30 AM CDT Office Visit [facility] [place] [address] [place] [address] Wilson Teague PAC [address] [place] [address] Health Maintenance Due Date Last [...] Procedure Name Priority Date/Time Associated Diagnosis Comments PLASTIC SURGERY CONSULT 09/01/2024 12:00 AM UNDERGRADUATE INTERN XR - UPPER EXTREMITY 09/01/2024 12:00 AM UNDERGRADUATE INTERN THYROID SCREEN WITH REFLEX Routine 07/30/2024 7:50 AM UNDERGRADUATE INTERN Hypertension, unspecified type Hypothyroidism (acquired) CBC WITH AUTO DIFFERENTIAL Routine 07/30/2024 7:50 AM UNDERGRADUATE INTERN Dyslipidemia THYROID SCREEN WITH REFLEX Routine 07/30/2024 7:50 AM UNDERGRADUATE INTERN Hypertension, unspecified type Hypothyroidism (acquired) LIPID PANEL Routine 07/30/2024 7:50 AM UNDERGRADUATE INTERN Coronary artery disease involving [place] coronary artery of [place] heart with other form of angina pectoris (HCC) Dyslipidemia CMP (COMPREHENSIVE METABOLIC PANEL) Routine 07/30/2024 7:50 AM UNDERGRADUATE INTERN Hypertension, unspecified type Dyslipidemia COMPLETE BLOOD COUNT (CBC) WITH DIFF Routine 07/30/2024 7:50 AM UNDERGRADUATE INTERN Dyslipidemia MARY BONE DENSITOMETRY AXIAL SKELETON Routine 07/12/2020 9:26 AM UNDERGRADUATE INTERN Postmenopausal from Last 3 Months or Most Recently Relevant to Health Maintenance Results * XR - UPPER EXTREMITY (09/01/2024 12:00 AM UNDERGRADUATE INTERN) 09/01/2024 us Provider Scan IMG DIAGNOSTIC ORDERABLES Final Result Performing Organization Address [facility] Co de Phone Number SCAN * PLASTIC SURGERY CONSULT (09/01/2024 12:00 AM UNDERGRADUATE INTERN) 09/01/2024 us Provider Scan GENERIC SCAN ORDERS CONSULT Maday l Result Performing Organization Address [facility] Co de Phone Number SCAN * THYROID SCREEN WITH REFLEX (07/30/2024 7:50 AM UNDERGRADUATE INTERN) TSH 0.989 0.300 - 5.000 mIU/L 07/30/2024 1:44 PM UNDERGRADUATE INTERN [facility] Blood Venipuncture / Unknown 07/30/2024 7:50 AM UNDERGRADUATE INTERN 07/30/2024 7:50 AM UNDERGRADUATE INTERN Wilson Teague PAC CHEMISTRY ORDERABLES Final R esult Performing Organization Address [facility] de Phone Number [facility] [address] [place] [address] * (ABNORMAL) CBC WITH AUTO DIFFERENTIAL (07/30/2024 7:50 AM UNDERGRADUATE INTERN) WBC 7.03 4.00 - 12.00 10(3)/mcL 07/30/2024 1:18 PM UNDERGRADUATE INTERN [facility] RBC 4.25 3.80 - 5.30 10(6)/mcL 07/30/2024 1:18 PM UNDERGRADUATE INTERN [facility] HEMOGLOBIN (HGB) 14.0 12.0 - 15.8 g/dL 07/30/2024 1:18 PM UNDERGRADUATE INTERN [facility] HEMATOCRIT (HCT) 42.2 36.0 - 47.0 % 07/30/2024 1:18 PM [facility] MCV 99.3(H) 82.0 - 96.0 fL 07/30/2024 1:18 PM [facility] MCH 32.9 26.0 - 34.0 pg 07/30/2024 1:18 PM [facility] MCHC 33.2 31.0 - 36.0 g/dL 07/30/2024 1:18 PM [facility] PLATELET COUNT 393 140 - 440 10(3)/mcL 07/30/2024 1:18 PM [facility] RDW 13.2 11.8 - 15.5 % 07/30/2024 1:18 PM [facility] MPV 10.0 9.7 - 12.4 fL 07/30/2024 1:18 PM [facility] NEUTROPHILS 53.7 47.0 - 73.0 % 07/30/2024 1:18 PM [facility] LYMPHOCYTES 31.4 18.0 - 42.0 % 07/30/2024 1:18 PM [facility] MONOCYTES 11.5 4.0 - 12.0 % 07/30/2024 1:18 PM [facility] EOSINOPHILS 2.7 0.0 - 5.0 % 07/30/2024 1:18 PM [facility] BASOPHILS 0.7 0.0 - 1.0 % 07/30/2024 1:18 PM [facility] ABSOLUTE NEUTROPHILS 3.77 1.60 - 7.70 10(3)/mcL 07/30/2024 1:18 PM [facility] ABSOLUTE LYMPHOCYTES 2.21 1.30 - 3.20 10(3)/mcL 07/30/2024 1:18 PM [facility] ABSOLUTE MONOCYTES 0.81 0.20 - 1.00 10(3)/mcL 07/30/2024 1:18 PM [facility] ABSOLUTE EOSINOPHIL 0.19 0.00 - 0.40 10(3)/mcL 07/30/2024 1:18 PM UNDERGRADUATE INTERN [facility] ABSOLUTE BASOPHILS 0.05 0.00 - 0.10 10(3)/mcL 07/30/2024 1:18 PM UNDERGRADUATE INTERN [facility] NRBC PER 100 WBC 0 07/30/19 1:18 PM UNDERGRADUATE INTERN [facility] Blood Venipuncture / Unknown 07/30/2024 7:50 AM UNDERGRADUATE INTERN 07/30/2024 7:50 AM UNDERGRADUATE INTERN Wilsno Teague [facility] HEMATOLOGY ORDERABLES Final Result [facility] [address] [place] [address] * (ABNORMAL) LIPID PANEL (07/30/2024 7:50 AM UNDERGRADUATE INTERN) CHOLESTEROL 151 <200 mg/dL 07/30/2024 1:30 PM UNDERGRADUATE INTERN [facility] TRIGLYCERIDES 168(H) <150 mg/dL 07/30/2024 1:30 PM [facility] HDL CHOLESTEROL 47 >40 mg/dL 1:30 PM UNDERGRADUATE INTERN [facility] LDL 70 <130 mg/dL 07/30/2024 1:30 PM UNDERGRADUATE INTERN [facility] VLDL 34 10 - 50 mg/dL 07/30/2024 1:30 PM [facility] CHOL/HDL RATIO 3.2 0.0 - 4.4 07/30/2024 1:30 PM UNDERGRADUATE INTERN [facility] NON-HDL CHOLESTEROL 104 <130 mg/dL 07/30/2024 1:30 PM [facility] IS THE PATIENT REQUIRED TO BE FASTING? Yes 07/30/2024 1:30 PM UNDERGRADUATE INTERN [facility] HAS THE PATIENT BEEN FASTING? Yes 07/30/2024 1:30 PM [facility] Blood Venipuncture / Unknown 07/30/2024 7:50 AM UNDERGRADUATE INTERN 07/30/2024 7:50 AM UNDERGRADUATE INTERN us Wilson Teague PAC CHEMISTRY ORDERABLES Final R esult [facility] [address] [place] [address] * (ABNORMAL) CMP (COMPREHENSIVE METABOLIC PANEL) (07/30/2024 7:50 AM UNDERGRADUATE INTERN) SODIUM 132(L) 136 - 145 mmol/L 07/30/2024 1:30 PM UNDERGRADUATE INTERN [facility] POTASSIUM 4.7 3.5 - 5.1 mmol/L 07/30/2024 1:30 PM UNDERGRADUATE INTERN [facility] CHLORIDE 102 98 - 107 mmol/L 07/30/2024 1:30 PM [facility] CO2, VENOUS 23 22 - 30 mmol/L 07/30/2024 1:30 PM [facility] ANION GAP 11.7 <18.0 mmol/L 07/30/2024 1:30 PM UNDERGRADUATE INTERN [facility] GLUCOSE 81 70 - 99 mg/dL 07/30/2024 1:30 PM UNDERGRADUATE INTERN [facility] BUN 11 10 - 20 mg/dL 07/30/2024 1:30 PM [facility] CREATININE, BLOOD 0.89 0.60 - 1.00 mg/dL 07/30/2024 1:30 PM [facility] BUN/CREATININE RATIO 12 12 - 20 ratio 07/30/2024 1:30 PM [facility] TOTAL PROTEIN 7.4 6.0 - 8.0 g/dL 07/30/2024 1:30 PM [facility] ALBUMIN 4.3 3.5 - 5.0 g/dL 07/30/2024 1:30 PM [facility] A/G RATIO 1.4 1.0 - 2.2 07/30/2024 1:30 PM [facility] CALCIUM 9.1 8.7 - 10.5 mg/dL 07/30/2024 1:30 PM UNDERGRADUATE INTERN [facility] T BILI 0.7 0.2 - 1.2 mg/dL 07/30/2024 1:30 PM UNDERGRADUATE INTERN [facility] SGOT (AST) 30 6 - 42 U/L 07/30/2024 1:30 PM UNDERGRADUATE INTERN [facility] SGPT (ALT) 24 6 - 55 U/L 07/30/2024 1:30 PM UNDERGRADUATE INTERN [facility] ALKALINE PHOSPHATASE 37(L) 40 - 150 U/L 07/30/2024 1:30 PM UNDERGRADUATE INTERN [facility] IS THE PATIENT REQUIRED TO BE FASTING? Yes 07/30/2024 1:30 PM UNDERGRADUATE INTERN [facility] HAS THE PATIENT BEEN FASTING? Yes 07/30/2024 1:30 PM UNDERGRADUATE INTERN [facility] GFR, ESTIMATED >60 >=60 07/30/2024 1:30 PM [facility] Comment: Creatinine Clearance is the preferred criteria for selecting drug dose adjustments in renally impaired patients. The GFR is provided as additional pertinent clinical information. GFR is reported in mL/min/1.73 sq m. Calculation based on the Chronic Kidney Disease Epidemiology Collaboration (CKD- EPI) equation refit without adjustment for race. GFR, EST. >60 >=60 025 1:30 PM UNDERGRADUATE INTERN [facility] GFR, EST. NONAFRICAN 60 >=60 07/30/2024 1:30 PM UNDERGRADUATE INTERN [facility] Blood Venipuncture / Unknown 07/30/2024 7:50 AM UNDERGRADUATE INTERN 07/30/2024 7:50 AM UNDERGRADUATE INTERN us Wilson Teague PAC CHEMISTRY ORDERABLES Final R esult [facility] [address] [place] [address] * MARY BONE DENSITOMETRY AXIAL SKELETON (07/12/2020 9:26 AM UNDERGRADUATE INTERN) Anatomical Region Laterality Modality BODY N/A Other 07/12/2020 9:39 AM UNDERGRADUATE INTERN Impressions 07/12/2020 9:42 AM UNDERGRADUATE INTERN IMPRESSION: Osteoporosis by WHO criteria. REFERENCE: Bone [...] of Osteoporosis (http://www.nof.org/professionals/clinical-guidelines) Narrative 07/12/2020 9:42 AM UNDERGRADUATE INTERN EXAM DESCRIPTION: MARY BONE DENSITOMETRY AXIAL SKELETON REASON FOR STUDY: Post-menopausal female, screening for osteoporosis. Delivery Aide/Model: Dragon Tail (S/N [id number]) CLINICAL INFORMATION: Current height: 66 inches Maximum [...] Markie Regalado M.D. AB: AB Report ID: [id number] Reading Location: [place] [address] Procedure Note Markie Regalado MD - 07/12/2020 EXAM DESCRIPTION: MARY BONE DENSITOMETRY AXIAL SKELETON REASON FOR STUDY: Post-menopausal female, screening for osteoporosis. Delivery Aide/Model: Dragon Tail (S/N [id number]) CLINICAL INFORMATION: Current height: 66 inches Maximum [...] by Markie Regalado M.D. AB: Report ID: [id number] Reading Location: [place] [address] IMPRESSION: Osteoporosis by WHO criteria. REFERENCE: Bone [...] to Prevention and Treatment of Osteoporosis (http://www.nof.org/professionals/clinical-guidelines) us Diamond Langley MD IMG DEXA ORDERABLES Final Re sult from Last 3 Months or Most Recently Relevant to Health Maintenance Insurance MEDICARE C [employer]ETNA Advance Directives Documents on File Type Date Recorded Patient Education Officer Expl anation Other Advance Directive 11/23/2021 3:36 PM 180 medical order form/fax confirmation Advance Care Planning Discussion 09/20/2021 3:11 PM MICROGEN LEVEL 2 REP ORT Power of Framing Specialist for Health Care 08/10/2018 1:18 PM POA Care Teams Wind Power Project Manager Relationship Specialty Start Date End Date Wilson Teague, PAC [address] [place] [address] PCP - General Physician Machine Umbrella Tipper 08/01/23 Prasanna Chowdary MD #2 [facility] [address] Consulting Physician Urology 01/25/22 Davey Peralta APRN, FUN HOUSE OPERATOR [address] [address] Nurse Practitioner Advanced Practice Nurse 12/29/23
--- OUTSIDE RECORDS SUMMARY | 2024-09-27 11:39 | XMS_ITS | Encounter Summary ---
Author Organization [facility] Address [address] [place] [address] Phone Care Team Providers Care Marketing Communications Coordinator Name Role Phone Diamond Langley MD Primary Care Provider + [phone] Felisha Gresham MD Primary Care Provider + [phone] Prasanna Chowdary MD Unavailable Wilson Teague Primary Care Provider + [phone] Davey Peralta APRN, SWATHI Unavailable + [phone] Reason for Visit * Reason Comments Medication Refill Encounter Details Date Type Department Care Team ([facility] Contact Info) Description 02/[facility] [address] [place] [address] Diamond Langley MD [address] [place] [address] Medication Refill Social History Tobacco [...] Upcoming Encounters Date Type Department Care Team ([facility] Contact Info) Description 12/28/2024 1:00 PM CDT Office Visit [facility] [address] [place] [address] Davey Peralta APRN, RADIOSONDE OPERATOR [address] [place] [address] 02/01/2025 8:[address] [facility] [place] [address] [place] [address] [facility] 02/07/2025 8:30 AM CDT Office Visit [facility] [place] [address] [place] [address] Wilson Teague [facility] [address] [place] [address] documented as of this encounter Visit Diagnoses Not on filedocumented in this encounter Additional Health Concerns Infection Onset Date Last Indicated Resolved Time COVID - 19 05/24/2024 05/24/2024 05/24/2024 9:51 AM LITHARGE MILL OPERATOR Respiratory Rule-Out 05/24/2024 05/24/2024 024 10:01 AM LITHARGE MILL OPERATOR COVID - 19 Confirmed 05/24/2024 05/24/2024 024 12:16 AM LITHARGE MILL OPERATOR Assessment Noted Time PHQ-9 Depression Total Score: 0 12/16/19 19 8:00 AM CDT documented as of this encounter Care Teams Marketing Communications Coordinator Relationship Specialty Start Date End Date Diamond Langley MD PCP - General Family Medicine 04/09/15 11/24/22 eFlisha Gresham MD [address] [place] [address] PCP - General Family Medicine 01/08/23 07/31/23 Wilson Teague, PAC [address] [place] [address] PCP - General Physician Supervisor Front 08/01/23 Prasanna Chowdary MD [address] [address] Consulting Physician Urology 01/25/22 Davey Peralta, CENTRAL MELT SPECIALIST, RADIOSONDE OPERATOR [address] [address] Nurse Practitioner Advanced Practice Nurse 12/29/23 documented as of this encounter
--- OUTSIDE RECORDS SUMMARY | 2024-09-27 11:39 | XMS_ITS | Encounter Summary ---
Author Organization [facility] Address [address] [place] [address] Phone Care Team Providers Care Commercial Or Institutional Cleaner Name Role Phone Prasanna Chowdary MD Unavailable Wilson Teague Primary Care Provider + [phone] Davey Peralta APRN, CNP Unavailable + [phone] Encounter Details Date Type Department Care Team (Late st Contact Info) Description 08/01/2024 Results Follow-Up [facility] - Primary Care - [address] [place] [address] Wilson Teague PAC [address] [place] [address] Social History Tobacco Use Types [...] [facility] [address] [place] [address] Davey Peralta APRN, LEAF CONDITIONER HELPER [address] [place] [address] 02/01/2025 8:10 AM CDT Lab [facility] - [place] [address] [place] [address] [facility] 02/07/2025 8:30 AM CDT Office Visit [facility] - [place] [address] [place] [address] Wilson Teague PAC [address] [place] [address] documented as of this encounter Visit Diagnoses Not on filedocumented in this encounter Additional Health Concerns Assessment Noted Time PHQ-9 Depression Total Score: 0 08/01/19 8:04 AM GAMBLING CASHIER documented as of this encounter Care Teams Commercial Or Institutional Cleaner Relationship Specialty Start Date End Date Wilson Teague PAC [address] [place] [address] PCP - General Physician Child Care Teacher 08/01/23 Prasanna Chowdary MD [address] [address] Consulting Physician Urology 01/25/22 Davey Peralta APRN, LEAF CONDITIONER HELPER [address] [place] [address] Nurse Practitioner Advanced Practice Nurse 12/29/23 documented as of this encounter
--- OUTSIDE RECORDS SUMMARY | 2024-09-27 11:39 | XMS_ITS | Encounter Summary ---
Author Organization [facility] Address [address] [place] [address] Phone Care Team Providers Care It Solutions Architect Name Role Phone Diamond Langley MD Primary Care Provider + [phone] Felisha Gresham MD Primary Care Provider + [phone] Prasanna Chowdary MD Unavailable Wilson Teague Primary Care Provider + [phone] Davey Peralta APRN, SWATHI Unavailable + [phone] Reason for Visit * Reason Comments Medication Refill Encounter Details Date Type Department Care Team (Late st Contact Info) Description 08/07/2021 Refill [facility] - Primary Care - [place] [address] [place] [address] Diamond Langley MD [address] [place] [address] Medication Refill Social History Tobacco [...] COVID-19? No / Unsure 07/17/2021 1:23 PM HEAD RESIDENT documented as of this encounter Miscellaneous Notes * Telephone Encounter - Tram Winters RN - 08/08/2021 7:56 AM HEAD RESIDENT Medication failed the protocol, provider to review [...] Dept 06/18/21 Office Visit Diamond Langley MD [facility] 06/12/21 Office Visit Joaquina Reyes APRN, DESKTOP TECHNICIAN [facility] 01/09/21 Office Visit Diamond Langley MD [facility] Showing recent visits within past 365 days and meeting all other requirements Future Appointments No visits were found meeting these conditions. Showing future appointments within next 90 days and meeting all other requirements RESIDENT documented in this encounter Plan of Treatment Upcoming Encounters Date Type Department Care Team (Late st Contact Info) Description 12/28/2024 1:00 PM CDT Office Visit [facility] [address] [place] [address] Davey Perlata APRN, DESKTOP TECHNICIAN [address] [place] [address] 02/01/2025 8:10 AM CDT Lab [facility] - Primary Care - [address] [place] [address] [facility] 02/07/2025 8:30 AM CDT Office Visit [facility] - Primary Care - [place] [address] [place] [address] Wilson Teague PAC [address] [facility] [address] documented as of this encounter Visit Diagnoses Diagnosis Left leg pain Pain in limb documented in this encounter Additional Health Concerns Infection Onset Date Last Indicated Resolved Time COVID - 19 05/24/2024 05/24/2024 05/24/2024 9:51 AM HEAD RESIDENT Respiratory Rule-Out 05/24/2024 05/24/2024 024 10:01 AM HEAD RESIDENT COVID - 19 Confirmed 05/24/2024 05/24/2024 024 12:16 AM HEAD RESIDENT Assessment Noted Time PHQ-9 Depression Total Score: 0 12/16/19 8:00 AM CDT documented as of this encounter Care Teams It Solutions Architect Relationship Specialty Start Date End Date Diamond Langley MD PCP - General Family Medicine 04/09/15 11/24/22 Felisha Gresham MD [address] [place], [place] [id number] PCP - General Family Medicine 01/08/23 07/31/23 Wilson Teague, PAC [address] [place] [address] PCP - General Physician Occupational Therapy Director 08/01/23 Prasanna Chowdayr MD #2 [facility] [address] [address] Consulting Physician Urology 01/25/22 Davey Peralta, DIVYA, DESKTOP TECHNICIAN [address] [place] [address] Nurse Practitioner Advanced Practice Nurse 12/29/23 documented as of this encounter
--- OUTSIDE RECORDS SUMMARY | 2024-09-27 11:40 | XMS_ITS | Encounter Summary ---
Author Organization [facility] Address [address] [place] [address] Phone Care Team Providers Care Cage/Vault Supervisor Name Role Phone Diamond Langley MD Primary Care Provider + [phone] Felisha Gresham MD Primary Care Provider + [phone] Prasanna Chowdary MD Unavailable Wilson Teague Primary Care Provider + [phone] Davey Peralta APRN, SWATHI Unavailable + [phone] Reason for Visit * Reason Comments Medication Refill Encounter Details Date Type Department Care Team (Late st Contact Info) Description [facility] [address] [place] [address] Diamond Langley MD [address] [place] [address] Medication Refill Social History Tobacco [...] Description 12/28/2024 1:00 PM CDT Office Visit [facility] PHYSICIAN [facility] UR[facility]Y [address] [place] [address] Davey Peralta, TRAVELING ACCOUNTANT, CARTRIDGE MAKER [address] [place] [address] 02/01/2025 8:10 AM CDT Lab [facility] [address] [place] [address] [facility] 02/07/2025 8:30 AM CDT Office Visit [facility] [address] [place] [address] Wilson Teague PAC [address] [place] [address] documented as of this encounter Visit Diagnoses Diagnosis Hypothyroidism (acquired) Unspecified hypothyroidism documented in this encounter Additional Health Concerns Infection Onset Date Last Indicated Resolved Time COVID - 19 05/24/2024 05/24/2024 05/24/2024 9:51 AM SOLE MOLDING MACHINE OPERATOR Respiratory Rule-Out 05/24/2024 05/24/2024 024 10:01 AM SOLE MOLDING MACHINE OPERATOR COVID - 19 Confirmed 05/24/2024 05/24/2024 024 12:16 AM SOLE MOLDING MACHINE OPERATOR Assessment Noted Time PHQ-9 Depression Total Score: 0 12/16/19 8:00 AM CDT documented as of this encounter Care Teams Cage/Vault Supervisor Relationship Specialty Start Date End Date Diamond Langley MD PCP - General Family Medicine 04/09/15 11/24/22 Felisha Gresham MD [address] [place] [address] PCP - General Family Medicine 01/08/23 07/31/23 Wilson Teague, [facility] [address] [place] [address] PCP - General Physician Regional Safety Manager 08/01/23 Prasanna Chowdary MD [address] [address] Consulting Physician Urology 01/25/22 Davey Peralta, TRAVELING ACCOUNTANT, CARTRIDGE MAKER [address] [place] [address] Nurse Practitioner Advanced Practice Nurse 12/29/23 documented as of this encounter
--- OUTSIDE RECORDS SUMMARY | 2024-09-27 11:40 | XMS_ITS | Referral Summary ---
Author Organization [facility] Address [address] [place] [address] Care Team Providers Care Hearing Aid Technician Name Role Phone Felisha Gresham MD Primary Care Provider Encounters Date Type Department Care Team Description 09/20/2024 Plan of Care Documentation [facility] Occupational Therapy [address] [place] [address] 09/20/2024 1:00 PM CDT Therapy [facility] Occupational Therapy [address] [place] [address] Yolanda Daniels, CECILIA Sprain of radiocarpal joint of left wrist, initial encounter; Ganglion, unspecified site; Sprain of carpal joint of left wrist, initial encounter from Last 3 Months Allergies Active Allergy Reactions Criticality Noted Date Comments Codeine Tetracycline Medications amLODIPine (NORVASC) 10 mg tablet Take 1 tablet (10 mg total) by mouth daily 02/11/2019 Active levothyroxine (SYNTHROID) 50 mcg tablet Take 1 tablet (50 mcg total) by mouth daily 05/07/2019 Active nitrofurantoin monohydrate (MACROBID) 100 mg capsule Take 100 mg by mouth as needed 12/23/2018 Active fluticasone furoate-vilanter ol (BREO ELLIPTA) 100-25 mcg/dose diskus inhaler Inhale [...] under the skin once Every 6 months 07/17/2023 Active clopidogreL (PLAVIX) 75 mg tablet TAKE 1 TABLET BY MOUTH EVERY DAY 90 tablet 3 08/17/2024 Active Active Problems No known active problems Immunizations Immunization Administration Dates Next Due Influenza, Trivalent, IM (MDV) 04/10/2016 Social History Tobacco Use Types Packs/Day Years Used Date Smoking Tobacco: Never Tobacco Cessation:Counseling Given: Not Answered Comments Unknown Sex and Gender Information Value Date Recorded Sex Assigned at Not on file Legal Sex Female 2:31 PM MOONER Gender Identity Not on file Sexual Orientation Not on file Last Filed Vital Signs Vital Sign Reading Time Taken Comments Blood Pressure 167/72 01/15/2024 10:37 AM CDT Pulse 65 01/15/2024 10:37 AM CDT Temperature 36.3 C (97.3 F) 11/08/2021 2:17 PM CDT Respiratory Rate 18 01/02/2023 1:44 PM CDT Oxygen Saturation 96% 07/22/2019 1:34 PM MOONER Inhaled Oxygen Concentration - - Weight 68 kg (150 lb) 01/15/2024 10:37 AM CDT Height 167.6 cm (5' 6 ) 01/15/2024 10:37 AM CDT Body Mass Index 24.21 01/15/2024 10:37 AM CDT Plan of Treatment Not on file Insurance [place] [facility] Care Teams Hearing Aid Technician Relationship Specialty Start Date End Date Felisha Gresham MD PCP - General Family Medicine 05/19/23
--- OUTSIDE RECORDS SUMMARY | 2024-09-27 11:40 | XMS_ITS | Clinical Summary ---
Author Organization [facility] Address [address] [place] [address] Care Team Providers Care 911 Emergency Dispatcher Name Role Phone Felisha Gresham MD Primary Care Provider [phone] Allergies Active Allergy Reactions Criticality Noted Date [...] Active Active Problems No known active problems Encounters Date Type Department Care Team Description 09/20/2024 1:00 PM CDT Therapy [facility] Occupational Therapy [address] [place] [address] Yolanda Daniels, CECILIA Sprain of radiocarpal joint of left wrist, initial encounter; Ganglion, unspecified site; Sprain of carpal joint of left wrist, initial encounter 09/20/2024 Plan of Care Documentation [facility] Occupational Therapy [address] [place] [address] from Last 3 Months Immunizations Immunization Administration Dates Next Due Influenza, Trivalent, IM (MDV) 04/10/2016 Surgical History Surgery Date Site/Laterality Comments IR FINE NEEDLE ASPIRATION W IMAGE GUIDANCE 01/11/2016 N/A Social History Tobacco Use Types Packs/Day Years Used Date Smoking Tobacco: Never Tobacco Cessation:Counseling Given: Not Answered Comments Unknown Sex and Gender Information Value Date Recorded Sex Assigned at Not on file Legal Sex Female 2:31 PM WELFARE VISITOR Gender Identity Not on file Sexual Orientation Not on file Obstetrics History Last Filed Vital Signs Vital Sign Reading Time Taken Comments Blood Pressure 167/72 01/15/2024 10:37 AM CDT Pulse 65 01/15/2024 10:37 AM CDT Temperature 36.3 C (97.3 F) 11/08/2021 2:17 PM CDT Respiratory Rate 18 01/02/2023 1:44 PM CDT Oxygen Saturation 96% 07/22/2019 1:34 PM WELFARE VISITOR Inhaled Oxygen Concentration - - Weight 68 [...] - 2023-2 5 season) 2024 09/26/2020, 08/29/2020 Pneumococcal vaccine 65+ Completed 018, 06/06/2015, 07/07/2006, Additional history exists Zoster Vaccine Completed 12/10/2018, 04/0 12/2018, 07/07/2007 Influenza Vaccine Completed 05/07/2024, , 04/14/2020, Additional history exists Insurance [facility] Care Teams 911 Emergency Dispatcher Relationship Specialty Start Date End Date Felisha Gresham MD PCP - General Family Medicine 05/19/23
--- OUTSIDE RECORDS SUMMARY | 2024-09-27 11:40 | XMS_ITS | Encounter Summary ---
Author Organization [facility] Address [address] [place] [address] Phone Care Team Providers Care Educational/Development Assistant Name Role Phone Diamond Langley MD Primary Care Provider + [phone] Felisha Gresham MD Primary Care Provider + [phone] Prasanna Chowdary MD Unavailable Wilson Teague Primary Care Provider + [phone] Davey Peralta APRN, SWATHI Unavailable + [phone] Reason for Visit * Reason Comments Medication Refill Encounter Details Date Type Department Care Team (Late st Contact Info) Description [facility]/05[facility] [address] [place] [address] Diamond Langley MD [address] [place] [address] Medication Refill Social History Tobacco [...] COVID-19? No / Unsure 07/17/2021 1:23 PM IMPORT/EXPORT ADMINISTRATOR documented as of this encounter Miscellaneous Notes [...] Dept 06/18/21 Office Visit Diamond Langley MD [address] 06/12/21 Office Visit Joaquina Reyes APRN, CARBON COATING MACHINE OPERATOR [address] 01/09/21 Office Visit Diamond Langley MD [employer] Showing recent visits within past 365 days [...] Dept 06/18/21 Office Visit Diamond Langley MD Out[address] 06/12/21 Office Visit Joaquina Reyes APRN, CARBON COATING MACHINE OPERATOR [address] 01/09/21 Office Visit Diamond [facility] MD [facility] [address] [facility] Showing recent visits within past 365 days and meeting all other requirements Future Appointments No visits were found meeting these conditions. Showing future appointments within next 90 days and meeting all other requirements RT/EXPORT ADMINISTRATOR documented in this encounter Plan of Treatment Upcoming Encounters Date Type Department Care Team (Late st Contact Info) Description 12/28/2024 1:00 PM CDT Office Visit [facility] UROLOGY [address] [place] [address] Davey Peralta, ELECTRON BEAM PHOTO MASK MAKER, CARBON COATING MACHINE OPERATOR [address] [place] [address] 02/01/2025 8:10 AM CDT Lab [facility] [place] [address] [place] [address] [facility] 02/07/2025 8:30 AM CDT Office Visit [facility] [place] [address] [place] [address] Wilson Teague PAC [address] [place] [address] documented as of this encounter Visit Diagnoses Diagnosis Hypothyroidism (acquired) Unspecified hypothyroidism documented in this encounter Additional Health Concerns Infection Onset Date Last Indicated Resolved Time COVID - 19 05/24/2024 05/24/2024 05/24/2024 9:51 AM IMPORT/EXPORT ADMINISTRATOR Respiratory Rule-Out 05/24/2024 05/24/2024 024 10:01 AM IMPORT/EXPORT ADMINISTRATOR COVID - 19 Confirmed 05/24/2024 05/24/2024 024 12:16 AM IMPORT/EXPORT ADMINISTRATOR Assessment Noted Time PHQ-9 Depression Total Score: 0 12/16/19 8:00 AM CDT documented as of this encounter Care Teams Educational/Development Assistant Relationship Specialty Start Date End Date Diamond Langley MD PCP - General Family Medicine 04/09/15 11/24/22 Felisha Gresham MD [address] [place] [address] PCP - General Family Medicine 01/08/23 07/31/23 Wilson Teague, PAC [address] [place] [address] PCP - General Physician Director General 08/01/23 Prasanna Chowdary MD [address] [address] Consulting Physician Urology 01/25/22 Davey Peralta, ELECTRON BEAM PHOTO MASK MAKER, CARBON COATING MACHINE OPERATOR [address] [address] Nurse Practitioner Advanced Practice Nurse 12/29/23 documented as of this encounter
--- OUTSIDE RECORDS SUMMARY | 2024-09-27 11:40 | XMS_ITS | Encounter Summary ---
Author Organization [facility] Address [address] [place] [address] Phone Care Team Providers Care Cloth Finisher Name Role Phone Diamond Langley MD Primary Care Provider + [phone] Felisha Gresham MD Primary Care Provider + [phone] Prasanna Chowdary MD Unavailable Wilson Teague Primary Care Provider + [phone] Davey Peralta APRN, SWATHI Unavailable + [phone] Reason for Visit * Reason Comments Medication Refill Encounter Details Date Type Department Care Team (Late st Contact Info) Description 04/09/2022 Refill [facility] - Primary Care - Self [address] [place] [address] Diamond Langley MD [address] [place] [address] Medication Refill Social History Tobacco [...] Description 12/28/2024 1:00 PM CDT Office Visit [facility] #[address] [place] [address] Davey Peralta APRN, ENVIRONMENTAL SCIENTIST [address] [place] [address] 02/01/2025 8:10 AM CDT Lab [facility] [place] [facility] [address] [place] [address] [facility] 02/07/2025 8:30 AM CDT Office Visit [facility] [place] [address] [place] [address] Wilson Teague PAC [address] [place] [address] documented as of this encounter Visit Diagnoses Not on filedocumented in this encounter Additional Health Concerns Infection Onset Date Last Indicated Resolved Time COVID - 19 05/24/2024 05/24/2024 05/24/2024 9:51 AM SIGNAL MANAGER Respiratory Rule-Out 05/24/2024 05/24/2024 024 10:01 AM SIGNAL MANAGER COVID - 19 Confirmed 05/24/2024 05/24/2024 024 12:16 AM SIGNAL MANAGER Assessment Noted Time PHQ-9 Depression Total Score: 0 12/16/19 8:00 AM CDT documented as of this encounter Care Teams Cloth Finisher Relationship Specialty Start Date End Date Diamond Langley MD PCP - General Family Medicine 04/09/15 11/24/22 Felisha Gresham MD [address] [place], [place] [id number] PCP - General Family Medicine 01/08/23 07/31/23 Wilson Teague, [facility] [address] [place] [address] PCP - General Physician Patient Carrier 08/01/23 Prasanna Chowdary MD [address] [address] Consulting Physician Urology 01/25/22 Davey Peralta, FILER FINISH, ENVIRONMENTAL SCIENTIST [address] [facility] [address] Nurse Practitioner Advanced Practice Nurse 12/29/23 documented as of this encounter
== END 2024-09-27 10:09 | disposition home or self-care (01) ==
PROVIDERS: Visit Provider Physician Assistant Surgical
DX: M67.40 Ganglion, unspecified site (principal); S63.512A Sprain of carpal joint of left wrist, initial encounter; X58.XXXA Exposure to other specified factors, initial encounter
CPT/HCPCS: 73110